=== PATIENT | female | born 1950 | race Caucasian/White ===

== ENCOUNTER 2021-10-01 13:15 | Inpatient (IN) | payer MEDICARE, OTHER, SELFPAY ==
[2021-10-01] VITALS (8 sets, daily range): BP systolic 138–178; BP diastolic 62–82; PULSE 65–78; RESP 14–19; TEMP 36.6–36.7; O2SAT 91–98; BMI 43.0
--- NOTE | 2021-10-01 13:32 | XR_ITS ---
WS: [id number] Portable AP upright chest, 10/01/2021 Clinical Data: cp Comparison: None. Findings: No nodules, masses or effusions are seen. The heart is normal. The pulmonary vascularity is not increased. No pneumonia or pneumothorax is seen. The aortic arch shows calcification. XR/XR chest 1V portable [id number] Impression: Atherosclerosis.
--- NOTE | 2021-10-01 13:35 | ECG_ITS ---
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 Measurements Intervals [place] Rate: 64 P: 70 [place]: 164 QRS: 80 QRSD: 82 T: 8 QT: 391 QTc: 405 Interpretive Statements SINUS RHYTHM POSSIBLE LEFT ATRIAL ENLARGEMENT [-0.1mV P-WAVE IN V1/V2] No previous ECG available for comparison Electronically Signed On 10-02-2021 20:34:14 COMPUTER NUMERIC CONTROL SETTER by Danielle Anders M.D. [email or web address] hospitalLBE [email or web address]/[id number] f
--- NOTE | 2021-10-01 13:35 | W.ED.CHESTPA ---
HPI - Chest Pain General: Chief Complaint: Chest Pain Stated Complaint: chest pain Time Seen by Provider: 10/01/21 13:21 History of Present Illness: HPI narrative: 71-year-old female history of hypertension diabetes and hyperlipidemia presents with chest pain. States that she has had intermittent episodes for the past 4 days but today became constant and it was pressure-like. No radiation. Does report some associated shortness of breath. Denies lower extremity pain or swelling. Denies nausea vomiting. Denies fever cough or chills. Review of Systems Narrative: - CONSTITUTIONAL: Denies weight loss, fever and chills. - HEENT: Denies changes in vision and hearing. - RESPIRATORY: As above - CV: As above - GI: Denies abdominal pain, nausea, vomiting and diarrhea. - : Denies dysuria and urinary frequency. - MSK: Denies myalgia and joint pain. - SKIN: Denies rash and pruritus. - NEUROLOGICAL: Denies headache, weakness, numbness and syncope. - PSYCHIATRIC: Denies suicidal ideation Physical Exam Narrative: EXAM NARRATIVE: - GENERAL: Alert and oriented x 3. No acute distress. Well-nourished. - EYES: EOMI. Anicteric. - HENT: Atraumatic, no C-spine tenderness. Moist mucous membranes. No scleral icterus. No cervical lymphadenopathy. - LUNGS: Clear to auscultation bilaterally. No accessory muscle use. Equal lung sounds bilaterally. No respiratory distress. - CARDIOVASCULAR: Regular rate and rhythm. No murmur. No JVD. - ABDOMEN: Soft, non-tender and non-distended. Negative CVA tenderness bilaterally, no rebound or guarding, negative Gates sign. No palpable masses. - EXTREMITIES: No edema. Non-tender. - SKIN: No rashes or lesions. Warm. - NEUROLOGIC: No meningismus or focal neurological deficits. CN II-XII grossly intact. - PSYCHIATRIC: Cooperative. Appropriate mood and affect. Course Vital Signs: Vital signs: Vital Signs Pulse Rate 67 10/01/21 13:29 Respiratory Rate 14 10/01/21 13:29 Blood Pressure 166/79 10/01/21 13:29 Pulse Oximetry 98 10/01/21 13:29 MDM - Chest Pain MDM Narrative: Medical decision making narrative: 71-year-old presents with chest pain. Physical exam remarkable. She is hemodynamic stable afebrile nontoxic-appearing. However initial troponin is elevated. EKG does not show any signs of STEMI or other acute abnormality. Second troponin is uptrending. She already took aspirin earlier today. She was started on Lovenox. Discussed with cardiology and they will consult. Remainder of lab work unremarkable except for mildly elevated BNP and D-dimer. However age-adjusted D-dimer is negative and she does not have any shortness of breath hypoxia or tachycardia. This time believe probability of PE is significantly lower. X-ray does not reveal pneumothorax or consolidation. Remainder of lab work and imaging reviewed. Discussed with hospitalist and they agreed patient would benefit from admission. Patient admitted in stable condition. Further evaluation management per hospitalist team. Lab Data: Labs: Lab Results 10/01/21 10/01/21 10/01/21 13:55 13:55 13:55 WBC Cancelled Corrected WBC Cancelled RBC Cancelled Hgb Cancelled Hct Cancelled MCV Cancelled MCH Cancelled MCHC Cancelled RDW Cancelled Plt Count Cancelled MPV Cancelled Gran % Cancelled Neut % (Auto) Cancelled Lymph % (Auto) Cancelled [place] % (Auto) Cancelled Eos % (Auto) Cancelled Baso % (Auto) Cancelled Neut # (Auto) Cancelled Lymph # (Auto) Cancelled [place] # (Auto) Cancelled Eos # (Auto) Cancelled Baso # (Auto) Cancelled Absolute Gran (aut o) Cancelled Nucleated RBC % (a uto) Cancelled Nucleated RBCs # Cancelled PT 13.10 SECONDS SEC ONDS (12.1-14.9) INR 0.96 (0.8-1.2) APTT 23.6 SECONDS L SE CONDS (23.9-36.7) D-Dimer 0.71 ug/mIFEU H u g/mIFEU (0-0.59) Sodium 139 mmol/L mmol/L (136-145) Potassium 4.5 mmol/L mmol/L (3.5-5.1) Chloride 103 mmol/L mmol/L (98-107) Carbon Dioxide 26 mmol/L mmol/L (22-29) Anion Gap 14.5 (5-19) BUN 20 mg/dL mg/dL (8-23) Creatinine 0.9 mg/dL mg/dL (0.5-0.9) GFR Calculation Not Reportable Glucose 158 mg/dL H mg/dL (65-115) Calculated Osmolal ity 294 mOsm/kg mOsm/ kg (285-295) Calcium 8.6 mg/dL mg/dL (8.5-10.5) Total Bilirubin 0.2 mg/dL mg/dL (0.15-1.2) AST 18 U/L U/L (0-32) ALT 12 U/L U/L (0-33) Alkaline Phosphata se 99 IU/L IU/L (35-105) Troponin T Baselin e Troponin T 120 Min [place] Troponin T NT-Pro-B Natriuret Pep 800 pg/mL H pg/mL (0-125) Total Protein 6.2 g/dL L g/dL (6.6-8.7) Albumin 3.8 g/dL g/dL (3.5-5.2) Globulin 2.4 g/dL g/dL (1.3-4.6) Lipase 25 U/L U/L (13-60) 10/01/21 10/01/21 10/01/21 13:55 14:50 15:48 WBC 9.4 10^3/uL 10^3/ uL (4.0-10.0) Corrected WBC RBC 4.59 10^6/uL 10^6 /uL (4.1-5.3) Hgb 13.5 g/dL g/dL (11.5-15.3) Hct 43.7 % % (37.0-47.0) MCV 95.2 fl fl (81-99) MCH 29.4 pg pg (28.0-34.0) MCHC 30.9 g/dL g/dL (30.0-36.0) RDW 13.8 % % (12.1-15.1) Plt Count 223 10^3/cmm 10^3 /cmm (130-400) MPV 11.0 fL H fL (7.4-10.4) Gran % Neut % (Auto) 75.7 % % Lymph % (Auto) 14.4 % % [place] % (Auto) 7.3 % % Eos % (Auto) 1.5 % % Baso % (Auto) 0.5 % % Neut # (Auto) 7.11 10^3/uL 10^3 /uL (1.8-7.7) Lymph # (Auto) 1.4 10^3/uL 10^3/ uL (0.8-4.8) [place] # (Auto) 0.7 10^3/uL 10^3/ uL (0.2-0.9) Eos # (Auto) 0.1 10^3/uL 10^3/ uL (0.0-0.8) Baso # (Auto) 0.1 10^3/uL 10^3/ uL (0.0-0.1) Absolute Gran (aut o) Nucleated RBC % (a uto) 0 % % Nucleated RBCs # 0.0 /100WBC /100W BC PT INR APTT D-Dimer Sodium Potassium Chloride Carbon Dioxide Anion Gap BUN Creatinine GFR Calculation Glucose Calculated Osmolal ity Calcium Total Bilirubin AST ALT Alkaline Phosphata se Troponin T Baselin e 56 ng/L H ng/L (0-10) Troponin T 120 Min [place] 86.89 ng/L H ng/L (0-10) Delta Troponin T 30.89 ABS# H* ABS # (0-10) NT-Pro-B Natriuret Pep Total Protein Albumin Globulin Lipase EKG Data^: EKG 1: Other EKG comments: Sinus rhythm rate 64, no sign of acute ischemia or other acute abnormality. Discharge Plan Discharge Prescriptions: No Action atorvastatin 20 mg tablet 20 mg PO BEDTIME RF: 0 aspirin 325 mg Tablet 650 mg PO ONCE RF: 0 metoprolol succinate 100 mg tablet extended release 24 hr 100 mg PO QAM RF: 0 Vitamin B-12 1,000 mcg Tablet 1,000 mcg PO QAM RF: 0 fosinopril 20 mg tablet 20 mg PO BID RF: 0 Calcium + D 600 mg(1,500mg) -200 unit Tablet 1 tab PO QAM RF: 0 allopurinol 100 mg tablet 100 mg PO QAM RF: 0 lorazepam 0.5 mg tablet 0.5 mg PO TID PRN (Reason: Anxiety) RF: 0 Vitamin C 500 mg Tablet 500 mg PO QAM RF: 0 omeprazole 20 mg capsule,delayed release(DR/EC) 20 mg PO QAM RF: 0 hydrochlorothiazide 25 mg tablet 25 mg PO EVERY OTHER DAY RF: 0 Ventolin HFA 90 mcg/actuation Hfa Aerosol Inhaler 2 puff INHALATION Q4H PRN (Reason: Shortness Of Breath) RF: 0 Vitamin D3 50 mcg (2,000 unit) Tablet 50 mcg PO QAM RF: 0 Victoza 3-Jeremy 0.6 mg/0.1 mL (18 mg/3 mL) pen injector 1.8 mg SUBCUT BEDTIME RF: 0 Invokana 100 mg tablet 100 mg PO QAM RF: 0 PreserVision AREDS-2 250-90-40-1 mg Capsule 1 cap PO QAM RF: 0 turmeric 400 mg Capsule 400 mg PO QAM RF: 0 Coding Level of Care Code ED Precision Thread Grinder Operator for Phyllisg Greg
[2021-10-01 14:32] LABS: Troponin(5th) Baseline 56 ng/L (0-10)
[2021-10-01 14:42] LABS: Alanine Aminotransferase 12 U/L (0-33); Albumin Level 3.8 g/dL (3.5-5.2); Alkaline Phosphatase 99 IU/L (35-105); Blood Urea Nitrogen 20 mg/dL (8-23); Calcium 8.6 mg/dL (8.5-10.5); Carbon Dioxide 26 mmol/L (22-29); Chloride 103 mmol/L (98-107); Globulin 2.4 g/dL (1.3-4.6); Glucose 158 mg/dL (65-115); INR 0.96 (0.8-1.2); Lipase 25 U/L (13-60); NT Pro B Type Natriuretic Pept 800 pg/mL (0-125); Osmolality Calculated 294 mOsm/kg (285-295); Partial Thromboplastin Time 23.6 SECONDS (23.9-36.7); Sodium 139 mmol/L (136-145); Total Bilirubin 0.2 mg/dL (0.15-1.2); Total Protein 6.2 g/dL (6.6-8.7)
[2021-10-01 14:47] LABS: Anion Gap 14.5 (5-19); Aspartate Amino Transferase 18 U/L (0-32); D Dimer 0.71 ug/mIFEU (0-0.59); Potassium 4.5 mmol/L (3.5-5.1)
[2021-10-01 14:55] LABS: Basophils # 0.1 10^3/uL (0.0-0.1); Basophils % 0.5 %; Eosinophils # 0.1 10^3/uL (0.0-0.8); Eosinophils % 1.5 %; Hematocrit 43.7 % (37.0-47.0); Hemoglobin 13.5 g/dL (11.5-15.3); Lymphocytes # 1.4 10^3/uL (0.8-4.8); Lymphocytes % 14.4 %; Mean Corpuscular HGB Conc 30.9 g/dL (30.0-36.0); Mean Corpuscular Hemoglobin 29.4 pg (28.0-34.0); Mean Corpuscular Volume 95.2 fl (81-99); Monocytes # 0.7 10^3/uL (0.2-0.9); Monocytes % 7.3 %; Neutrophils # 7.11 10^3/uL (1.8-7.7); Neutrophils % 75.7 %; Nucleated Red Blood Cells % 0 %; Platelet Count 223 10^3/cmm (130-400); Red Blood Count 4.59 10^6/uL (4.1-5.3); Red Cell Distribution Width 13.8 % (12.1-15.1); White Blood Count 9.4 10^3/uL (4.0-10.0)
--- NOTE | 2021-10-01 15:35 | ECG_ITS ---
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 Measurements Intervals [place] Rate: 62 P: 69 [place]: 170 QRS: 77 QRSD: 86 T: 45 QT: 398 QTc: 404 Interpretive Statements SINUS RHYTHM POSSIBLE LEFT ATRIAL ENLARGEMENT [-0.1mV P-WAVE IN V1/V2] Compared to ECG 10/01/2021 14:08:02 No significant changes Electronically Signed On 10-02-2021 22:00:30 HOSE TURNER by Danielle Anders M.D. [email or web address] [email or web address], [email or web address].[email or web address]/[id number] f
[2021-10-01 16:20] LABS: Troponin 5 2HR 86.89 ng/L (0-10)
[2021-10-01 16:21] LABS: Troponin 5 2HR Delta 30.89 ABS# (0-10)
--- NOTE | 2021-10-01 19:28 | PM.CONSULT ---
Providers/Reason For Consult Consulting Physician/Specialty*: Dr. Anders, cardiology Reason for Consult*: NSTEMI Requesting Physician: Dr. Subramanian Attending Physician: Dr. Subramanian History of Present Illness History of Present Illness Camelia Garza is a 71 year old female who presented with chest pain on and off for last few days with worse pain today described as pressure 7-8/10. She took ASA x2 and anxiety medication and then called 911. She recieved NTG SL and came to ER for further evaluation. Troponin T baseline was 56 that increased to 87. She is currently CP free. EKG on arrival showed sinus rhythm with possible left atrial enlargement and nonspecific T wave inversion in lead III. She is CP free at the time of symptoms. Review of Systems Const: Denies: fever(s), chills, change in weight, fatigue or malaise Eyes: Denies: change in vision ENMT: Denies: bleeding gums Card: Reports: chest pain; Denies: edema Resp: Denies: dyspnea GI: Denies: nausea, vomiting, hematemesis, heartburn, diarrhea, constipation, hematochezia or melena : Denies: difficulty voiding, oliguria or hematuria Musc: Denies: back pain or extremity swelling Skin/Breast: Denies: rash or erythema Psych: Denies: anxiety, depression or irritability Endo: Denies: tired all the time Grant/Lymph: Denies: easy bruising, easy bleeding, petechiae or purpura Meds/Allergies Home Medications and Allergies Home Medications Medication Instructions Recorded Confirmed Last Taken Type albuterol sulfate [Ventolin HFA] 2 puff INHALATION Q4H PRN 10/01/21 10/01/21 Unknown History allopurinol 100 mg PO QAM 10/01/21 10/01/21 10/01/21 History ascorbic acid (vitamin C) [Vitamin 500 mg PO QAM 10/01/21 10/01/21 10/01/21 History C] aspirin 650 mg PO ONCE 10/01/21 10/01/21 10/01/21 History atorvastatin 20 mg PO BEDTIME 10/01/21 10/01/21 09/30/21 History calcium carbonate-vitamin D3 1 tab PO QAM 10/01/21 10/01/21 10/01/21 History [Calcium + D] canagliflozin [Invokana] 100 mg PO QAM 10/01/21 10/01/21 10/01/21 History cholecalciferol (vitamin D3) 50 mcg PO QAM 10/01/21 10/01/21 10/01/21 History [Vitamin D3] cyanocobalamin (vitamin B-12) 1,000 mcg PO QAM 10/01/21 10/01/21 10/01/21 History [Vitamin B-12] fosinopril 20 mg PO BID 10/01/21 10/01/21 10/01/21 09:00 History hydrochlorothiazide 25 mg PO EVERY OTHER DAY 10/01/21 10/01/21 10/01/21 History liraglutide [Victoza 3-Jeremy] 1.8 mg SUBCUT BEDTIME 10/01/21 10/01/21 09/30/21 History lorazepam 0.5 mg PO TID PRN 10/01/21 10/01/21 10/01/21 History metoprolol succinate 100 mg PO QAM 10/01/21 10/01/21 10/01/21 09:00 History omeprazole 20 mg PO QAM 10/01/21 10/01/21 10/01/21 09:00 History turmeric 400 mg PO QAM 10/01/21 10/01/21 10/01/21 History vit C,W-Mt-zmqox-lutein-zeaxan 1 cap PO QAM 10/01/21 10/01/21 10/01/21 History [PreserVision AREDS-2] Allergies Allergy/AdvReac Type Severity Reaction Status Date / Time glimepiride [From Amaryl] Allergy Unknown Verified 10/01/21 17:03 lisinopril Allergy Unknown Verified 10/01/21 17:03 Sulfa (Sulfonamide Allergy Unknown Verified 10/01/21 17:03 Antibiotics) insulin prior to surgery Allergy pt states Uncoded 10/01/21 17:03 she cant have any kind of insulin prior to surgery PFSH Acute PFSH: Medical History Diabetes mellitus Dyslipidemia GERD (gastroesophageal reflux disease) Gout HTN (hypertension) Rectal fistula Surgical History Hx of cholecystectomy Family History Mother CHF (congestive heart failure) Brother CHF (congestive heart failure) Social History Smoking and tobacco status: former smoker Alcohol intake: never Household members: none Marital status: / Current occupational status: retired Vitals/I&O/Wt Last Vital Signs Pulse 78 10/01/21 17:39 Resp 14 10/01/21 13:29 BP 178/69 10/01/21 17:39 Pulse Ox 95 10/01/21 17:39 Weight last 48 hrs Weight 220 lb Physical Exam Narrative: EXAM NARRATIVE: GENERAL: obese woman in no acute distress HEENT:Pupils equal round reactive to light. No pallor or icterus. NECK: No JVD, No carotid bruit. CARDIOVASCULAR SYSTEM: S1-S2 regular. No murmur rubs or gallops. RESPIRATORY SYSTEM: Chest clear to auscultation. No wheezes rhonchi or rubs heard. No use of accessory muscles. ABDOMEN: Soft, nontender and nondistended. Normal bowel sounds present. EXTREMITIES: No cyanosis or clubbing. No edema. MEDICAL ASSOCIATE: Patient is alert oriented ?3. No focal neurological deficits. SKIN: Normal turgor and temperature. No breakdown, rash or nail changes noted. PSYCH: Normal insight and judgment. Data Labs: Other Labs: Baseline troponin T of 56 that at 2 hours increased to 87. NT proBNP of 800 Other Data: Other data: Chest x-ray showed no acute abnormalities. A&P Assessment and plan (1) NSTEMI (non-ST elevated myocardial infarction): continue ACS protocol. -Plan for C in morning. -Case was discussed with Dr. Mayen. -Risks and benefits were discussed with the patients. Possible complications were reviewed with the patient as well. Status: Acute (2) HTN (hypertension): Status: Acute (3) Dyslipidemia: Status: Acute (4) Diabetes mellitus: Status: Acute (5) GERD (gastroesophageal reflux disease): Status: Acute Consult Attestations Time Spent in Patient Care: Greater than 35 minutes (>than 50% of time spent in counselling and/or direct pt care on unit). Coding Level of Care Code Acute Engraver Hand Hard Metals for g Fwd Diagnoses NSTEMI (non-ST elevated myocardial infarction) I21.4 HTN (hypertension) I10 Dyslipidemia E78.5 Diabetes mellitus E11.9 GERD (gastroesophageal reflux disease) K21.9
--- NOTE | 2021-10-01 19:31 | P.HP_ITS ---
Providers/Chief Complaint Chief Complaint: chest pain History of Present Illness 71-year-old lady with history of diabetes, HTN, morbid obesity, former smoker, quit 25 years ago, gout, anxiety, since about 10 years he has been expensing some on and off brief episodes of chest discomfort. Today he experienced an episode which lasted at least 30 minutes for which he initially took anxiety medication without relief, then take an aspirin, and received additional medications and EMS, and only then started feeling relief. She states she otherwise has been at baseline state of health. In ER EKG without signs of ischemia, but with troponin elevation from 56-86.892 hours. Currently she is chest pain-free. Review of Systems Const: Denies: fever(s), chills, body aches or malaise Eyes: Denies: change in vision or eye redness ENMT: Denies: throat pain, oral sores or ear or mastoid pain Card: Reports: chest pain; Denies: edema, pre-syncope or dyspnea on exertion Resp: Denies: dyspnea, productive cough, change in phlegm color or hemoptysis GI: Denies: abdominal pain, nausea, vomiting, diarrhea, constipation, hematochezia or melena : Denies: flank pain, urinary frequency or hematuria Musc: Denies: back pain, joint swelling or joint redness Skin/Breast: Denies: rash, sores or new lesions Neuro: Denies: headache(s), numbness in extremities, weakness in extremities, dizziness, confusion or seizure-like activity Endo: Denies: polyuria or polydipsia Grant/Lymph: Denies: easy bleeding or purpura All/Imm: Denies: urticaria, throat swelling or tongue swelling Medications/Allergies Home Medications Medication Instructions Recorded Confirmed Last Taken Type albuterol sulfate [Ventolin HFA] 2 puff INHALATION Q4H PRN 10/01/21 10/01/21 Unknown History allopurinol 100 mg PO QAM 10/01/21 10/01/21 10/01/21 History ascorbic acid (vitamin C) [Vitamin 500 mg PO QAM 10/01/21 10/01/21 10/01/21 History C] aspirin 650 mg PO ONCE 10/01/21 10/01/21 10/01/21 History atorvastatin 20 mg PO BEDTIME 10/01/21 10/01/21 09/30/21 History calcium carbonate-vitamin D3 1 tab PO QAM 10/01/21 10/01/21 10/01/21 History [Calcium + D] canagliflozin [Invokana] 100 mg PO QAM 10/01/21 10/01/21 10/01/21 History cholecalciferol (vitamin D3) 50 mcg PO QAM 10/01/21 10/01/21 10/01/21 History [Vitamin D3] cyanocobalamin (vitamin B-12) 1,000 mcg PO QAM 10/01/21 10/01/21 10/01/21 History [Vitamin B-12] fosinopril 20 mg PO BID 10/01/21 10/01/21 10/01/21 09:00 History hydrochlorothiazide 25 mg PO EVERY OTHER DAY 10/01/21 10/01/21 10/01/21 History liraglutide [Victoza 3-Jeremy] 1.8 mg SUBCUT BEDTIME 10/01/21 10/01/21 09/30/21 History lorazepam 0.5 mg PO TID PRN 10/01/21 10/01/21 10/01/21 History metoprolol succinate 100 mg PO QAM 10/01/21 10/01/21 10/01/21 09:00 History omeprazole 20 mg PO QAM 10/01/21 10/01/21 10/01/21 09:00 History turmeric 400 mg PO QAM 10/01/21 10/01/21 10/01/21 History vit C,J-Xa-qthyr-lutein-zeaxan 1 cap PO QAM 10/01/21 10/01/21 10/01/21 History [PreserVision AREDS-2] Allergies Allergy/AdvReac Type Severity Reaction Status Date / Time glimepiride [From Amaryl] Allergy Unknown Verified 10/01/21 17:03 lisinopril Allergy Unknown Verified 10/01/21 17:03 Sulfa (Sulfonamide Allergy Unknown Verified 10/01/21 17:03 Antibiotics) insulin prior to surgery Allergy pt states Uncoded 10/01/21 17:03 she cant have any kind of insulin prior to surgery PFSH Acute PFSH: Medical History (Updated 10/01/21 @ 19:34 by Ravi Subramanian MD) Diabetes mellitus Dyslipidemia GERD (gastroesophageal reflux disease) Gout HTN (hypertension) Rectal fistula Surgical History Hx of cholecystectomy Family History Mother CHF (congestive heart failure) Brother CHF (congestive heart failure) Social History Smoking and tobacco status: former smoker Alcohol intake: never Substance/Drug Use: never Household members: none Marital status: / Current occupational status: retired Vitals/I&O/Wt Last Vital Signs Pulse 78 10/01/21 17:39 Resp 14 10/01/21 13:29 BP 178/69 10/01/21 17:39 Pulse Ox 95 10/01/21 17:39 Weight last 48 hrs Weight 99.79 kg Physical Exam Const: COMMON NORMALS: no acute distress and patient oriented x3 NUTRITIONAL APPEARANCE: obese morbidly obese HENMT: COMMON NORMALS: oropharynx normal Neck/C-Spine: COMMON NORMALS: no JVD Resp: COMMON NORMALS: normal respiratory effort and clear to auscultation bilaterally AUSCULTATION: clear to auscultation bilaterally Cardio: COMMON NORMALS: no JVD, regular rhythm, S1 normal heart sound present, S2 normal heart sound present and No murmurs present (Cardio) RHYTHM: regular rhythm HEART SOUNDS: S1 normal heart sound present and S2 normal heart sound present GI: COMMON NORMALS: Normal to inspection, nondistended, normoactive bowel sounds present, Soft to palpation and non-tender PALPATION: Yes Soft to palpation Extremity: COMMON NORMALS: no joint enlargement and no pedal edema Neuro: COMMON NORMALS: patient oriented x3 and moves all extremities Skin: COMMON NORMALS: no rashes or lesions noted GENERAL SKIN EXAM: no rashes or lesions noted Data : 10/01/21 14:50 10/01/21 13:55 A&P Assessment and plan (1) NSTEMI (non-ST elevated myocardial infarction): Recurrent episodes of chest pain since clear, today with a prolonged episode at least 30 minutes, with troponin elevation. Risk factors of CAD including DM2, HTN, morbid obesity, history of heart problems in the family. Former smoker but quit 23 years ago. Aspirin, continue Lovenox, beta-rani, statin. NTG as needed. Monitor telemet ry. TTE. Cardiology consultation. Status: Acute Additional A&P Information Mild abnormality D-dimer: 0.71, normal corrected for age. Denies shortness of breath, cough, hemoptysis, unilateral leg swelling, low risk of PE. DM2 HTN Morbid obesity Attestations Medical Necessity Statement*: Admission of over 2 midnights is anticipated for assessment management of NSTEMI. Coding Level of Care Code Acute Chemical Engineering Intern for Venkatesh Garza Diagnoses NSTEMI (non-ST elevated myocardial infarction) I21.4
--- NOTE | 2021-10-01 19:35 | ECG_ITS ---
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 Measurements Intervals [place] Rate: 69 P: 73 [place]: 179 QRS: 74 QRSD: 75 T: 18 QT: 382 QTc: 410 Interpretive Statements SINUS RHYTHM NONSPECIFIC T-WAVE ABNORMALITY Compared to ECG 10/01/2021 15:22:23 T-wave abnormality now present Electronically Signed On 10-02-2021 21:58:59 RIVETING MACHINE OPERATOR AUTOMATIC by Danielle Anders M.D. [id number]
[2021-10-01] MEDS: enoxaparin 100 mg/mL Syringe SUBCUT (19:59)
[2021-10-01 20:38] LABS: Troponin 5 6HR 148.3 ng/L (0-10)
[2021-10-01 20:45] LABS: Troponin 5 6HR Delta 92.3 ng/L (0-12)
[2021-10-01 21:18] LABS: Glucose Point of Care 115 mg/dL (70-110)
[2021-10-01] MEDS: atorvastatin 40 mg Tablet PO (22:10)
[2021-10-02] VITALS (32 sets, daily range): BP systolic 109–179; BP diastolic 50–99; PULSE 63–90; RESP 16–33; TEMP 36.5–36.9; O2SAT 92–100
[2021-10-02 02:02] LABS: Adenovirus Not Detected (NOT DETECT); Chlamydia Pneumoniae Not Detected (NOT DETECT); Coronavirus 229E,HKU1,NL63,OC4 Not Detected (NOT DETECT); Human Metapneumovirus Not Detected (NOT DETECT); Human Rhinovirus/Enterovirus Not Detected (NOT DETECT); Influenza A Not Detected (NOT DETECT); Influenza A H1 Not Detected (NOT DETECT); Influenza A H1-2009 Not Detected (NOT DETECT); Influenza A H3 Not Detected (NOT DETECT); Influenza B Not Detected (NOT DETECT); Mycoplasma Pneumoniae Not Detected (NOT DETECT); Parainfluenza Virus Type 1 Not Detected (NOT DETECT); Parainfluenza Virus Type 2 Not Detected (NOT DETECT); Parainfluenza Virus Type 3 Not Detected (NOT DETECT); Parainfluenza Virus Type 4 Not Detected (NOT DETECT); Respiratory Syncytial Virus A Not Detected (NOT DETECT); Respiratory Syncytial Virus B Not Detected (NOT DETECT); SARS-COV-2 Not Detected (NOT DETECT)
[2021-10-02] MEDS: allopurinol 100 mg Tablet PO (05:45)
[2021-10-02] MEDS: metoprolol succinate ER (24 HR) 100 mg Tablet PO (05:45)
[2021-10-02] MEDS: ascorbic acid 500 mg Tablet PO (05:45)
[2021-10-02] MEDS: pantoprazole DR 40 mg Tablet PO (05:45)
[2021-10-02] MEDS: sodium chloride 0.9% 1,000 ML 50 ML IV (05:46)
[2021-10-02 06:38] LABS: Basophils # 0.1 10^3/uL (0.0-0.1); Basophils % 0.6 %; Eosinophils # 0.3 10^3/uL (0.0-0.8); Eosinophils % 3.1 %; Lymphocytes # 2.6 10^3/uL (0.8-4.8); Lymphocytes % 29.7 %; Mean Corpuscular Hemoglobin 29.2 pg (28.0-34.0); Mean Corpuscular Volume 94.4 fl (81-99); Mean Platelet Volume 12.1 fL (7.4-10.4); Monocytes # 0.8 10^3/uL (0.2-0.9); Monocytes % 9.5 %; Neutrophils # 4.96 10^3/uL (1.8-7.7); Neutrophils % 56.5 %; Nucleated Red Blood Cells % 0 %; Platelet Count 218 10^3/cmm (130-400); Red Blood Count 4.45 10^6/uL (4.1-5.3); Red Cell Distribution Width 13.7 % (12.1-15.1); White Blood Count 8.8 10^3/uL (4.0-10.0)
[2021-10-02 06:45] LABS: Glucose Point of Care 104 mg/dL (70-110)
[2021-10-02 06:51] LABS: Blood Urea Nitrogen 20 mg/dL (8-23); Calcium 9.8 mg/dL (8.5-10.5); Carbon Dioxide 25 mmol/L (22-29); Chloride 104 mmol/L (98-107); Glucose 108 mg/dL (65-115); Osmolality Calculated 295 mOsm/kg (285-295); Sodium 141 mmol/L (136-145)
--- NOTE | 2021-10-02 07:02 | XACV_ITS ---
Exam Room: [facility] Ht: 152 cm Wt: 100 kg BSA: 2.12 m2 Gender: Female : 1950 Any Known Allergies: Other Exam Priority: Routine Procedure(s): Procedure Description: Diagnostic procedure Procedure Description: Left Heart Catheterization Procedure Description: Coronary Angiography Diagnostic Cath Status: Urgent Diagnostic Findings * Left Anterior Descending has no disease. * Left Main: minimal 30% stenosis, DARRIN: 3 flow. * Proximal Right Coronary Artery: minimal 30% stenosis, DARRIN: 3 flow. * Mid Right Coronary Artery: moderate 50% stenosis, DARRIN: 3 flow. * Distal Right Coronary Artery: severe 90% stenosis, DARRIN: 3 flow. * Distal Right Coronary Artery: moderate 50% stenosis, DARRIN: 3 flow. * Distal Circumflex: mild 40% stenosis, DARRIN: 3 flow. * Coronary angiography shows right dominance. Conclusions 1. There is severe coronary artery disease with three vessel disease. Recommendations * While patient was on the table we received * STEMI alert, patient was taken off of the table with sheath in place with the intention to bring him back after the we will deal with patient in the ER.. Diagnostic RX Recommendation: PCI w/o planned CABG Pressures Phase:Rest AO : 163 / 67 ( 103 ) @ 10:14:00 AM 138 / 70 ( 99 ) @ 10:15:00 AM 200 / 78 ( 123 ) @ 10:34:00 AM 170 / 60 ( 104 ) @ 10:43:00 AM 159 / 59 ( 99 ) @ 10:43:00 AM 129 / 61 ( 91 ) @ 10:45:00 AM LV : 174 / -4 / 18 @ 10:42:00 AM 171 / -4 / 18 @ 10:43:00 AM Valves Phase:DefaultPhase AV : 1.0 @ 1:06:54 PM AV Mean Gradient: 0.0 @ 1:06:54 PM Clinical Evaluation EBL: 5mL-10mL Procedural Details Procedure Consent Obtained. Dr. Anders scrubbing in with Dr. Angella Tam, paintings conservator. Pre-Procedure Time Out. Identified patient by full name and date of as verbalized by the patient/guarantor. Does the consent match the physician's order: Yes. Accurate & Complete Informed Consent: Yes. Inpatient/Outpatient History & Physical on Chart: Yes. If H&P is completed, is and addenduem needed: Yes; If yes, is the addendum complete: Yes. Visualize and Verify Site with Patient/Guarantor: N/A. Relevant Radiology Images available: Yes. The risks, benefits, and alternatives of sedation and/or procedure were discussed by physician. The patient agrees to continue. Procedure started. [facility] Clinical Fraility Score: 3: Managing Well. Entry Analyst Indications: New Onset Angina. Chest Pain Symptom Assessment: Typical Angina Symptoms. Cardiovascular Instability: No. Correct patient, site and procedure confirmed by cath team. PERRLA. Strong, equal hand geologic technician bilaterally. Lungs clear x 5 lobes. IV Site on Arrival: 20 gauge in the left forearm. IV Fluids: 0.9% NaCl at KVO. 300 mL infused prior to solar lab technician. Pre Procedural Pulses: bilateral radial was 3+. Oxygen started at 2liters/min via nasal canula. right groin was prepped with chloroprep then draped in the usual sterile fashion. right radial was prepped with chloroprep then draped in the usual sterile fashion. Physician notified. Patient's family unavailable. The patient stated that she contacted her family this morning and that there was no reason for Dr. Mayen to call post procedure, that she would call them later. Equipment: 6F - Radial. Cardiac Cath Pack. ACIST Manifold Kit Model BT 2000. Heparinized Saline (2 units/mL), 1000 mL bag. Physician arrived. Baseline sample Acquired. HR: 71 BPM. Physician scrubbed in. Immediate Pre-Procedure Time Out. Correct Patient: Yes; Correct Procedure: Yes; Correct Site: Yes; Correct Patient Position: Yes; Correct Supplies: Yes; Dried Flammable Prep:Yes Blood Products Available: N/A;. Lidocaine 1% infiltrated to the right radial. Arterial access obtained. A 5 prydeinig TIG catheter in over wire. Radial access aborted due to tortuosity. A TR Band was successful obtaining hemostatsis at the Right Radial artery insertion site. Lidocaine 1% infiltrated to the right groin. Arterial access obtained with micropuncture set. A Right femoral angiogram was performed via hand injection. A 5 prydeinig JL4 catheter in over wire. Multiple views taken of left coronary artery. Catheter out. A 5 prydeinig JR4 catheter in over wire. EDP Sample taken: LV 174/-5,18; HR: 74 BPM; SpO2: 98%. Pullback taken: LV 171/-5,18; AO 170/60(104); Mean: 0mmHg, Peak to Peak: 1mmHg, SEP: 16sec/min; HR: 72 BPM; SpO2: 99%. Multiple views taken of right coronary artery. Catheter out. Dr. Mayen scrubbed out to assess an STEMI alert in the ER. Will abort PCI at this time to bring an ER NSTEMI over. Vital chart was stopped. Dr. Anders scrubbed out. Sheath(s) sutured into position with 2-0 silk and sterile 4x4's and Op-site applied over the site. No oozing or signs and symptoms of hematoma noted. Post Procedure: Pulses reassessed and unchanged. PERRLA. Strong, equal hand geologic technician bilaterally. No VTE prophylaxis required. Arterial sheath flushed and connected to tranducer and pressure bag with heparinized saline. A Suture was successful obtaining hemostatsis at the Right Femoral artery insertion site. Medication's Wasted: Nitro = 49.8 mg. Medication's Wasted: Heparin = 4000 units. Total IV fluids: 92 mL. Post-op diagnosis: Obstructive CAD of the RCA. Plan to bring back later today for PCI. Complications: none. Estimated blood loss: 5mL-10mL. Responsiveness - Normal response to verbal stimuli; alert and oriented, PERRLA. Airway - Unaffected, no intervention required; spontaneous ventilation. Circulation: W/N/L, pulses unchanged. Nausea/Vomiting: No. Procedure completed. Patient transferred by bed to 1st floor. Access Site Site: Right Radial artery Sheath Size: 6 Fr Hemostasis Method: TR Band Hemostasis Success: Successful Site: Right Femoral artery Sheath Size: 6 Fr Hemostasis Method: Suture Hemostasis Success: Successful Procedure Medications Start: 11:49 AM Stop: 11:49 AM Medication: Versed Amount: 1 mg Route: I.V. Start: 11:49 AM Stop: 11:49 AM Medication: Fentanyl Amount: 25 mcg Route: I.V. Start: 11:50 AM Stop: 11:50 AM Medication: Benadryl Amount: 50 mg Route: I.V. Start: 12:07 PM Stop: 12:07 PM Medication: Versed Amount: 1 mg Route: I.V. Start: 12:08 PM Stop: 12:08 PM Medication: Nitrogylcerin Amount: 200 mcg Route: I.A. Start: 12:38 PM Stop: 12:38 PM Medication: Fentanyl Amount: 25 mcg Route: I.V. Start: 12:39 PM Stop: 12:39 PM Medication: Hydralazine Amount: 10 mg Route: I.V. Start: 12:44 PM Stop: 12:44 PM Medication: Hydralazine Amount: 10 mg Route: I.V. Start: 1:03 PM Stop: 1:03 PM Medication: Plavix Amount: 600 mg Route: P.O. I, the attending physician, have reviewed and verified all procedure medications. Yes, all medications given per verbal order History/Risk Factors Hypertension: Yes Dyslipidemia: Yes Peripheral Arterial Disease (PAD): No Myocardial Infarction (SD): No Obesity: Yes Tobacco Use: Former Prior Interventions PCI: No CABG: No Valve Surgery: No Report Signatures Finalized by Migel Mayen MD on 10/15/2021 06:59 PM
[2021-10-02] MEDS: aspirin 325 mg EC Tablet PO (08:48)
--- NOTE | 2021-10-02 11:42 | W.PM.OPSUD ---
Surgery/Procedure H&P Update DATE OF PROCEDURE: October 02, 2021 DATE H&P PERFORMED: 10/01/21 H&P UPDATE INFORMATION: I have reviewed H&P completed within last 30 days, I have examined patient prior to procedure and No changes to prior documentation PREOP DIAGNOSIS: Acute coronary syndrome PLANNED PROCEDURE: Operation Date: 10/02/21 11:00 Proposed Procedures p Cardiac Catheterization(Left) - Migel Mayen MD PATIENT REASSESSED PRIOR TO SEDATION, WITH NO CHANGE NOTED: Yes PHYSICAL EXAM: alert, oriented x 3 and clear to auscultation bilaterally AIRWAY EVAL/ANESTHESIA PLAN: ASA II and Risks, benefits & alternatives of sedation and/or procedure discussed ADDITIONAL INFORMATION: Patient has been explained all risk patient understand risk for major minors surgery vascular surgery stroke bypass surgery urgent emergent, she understand risk for transfusion. She would like to proceed with it.
[2021-10-02 11:46] LABS: Glucose Point of Care 128 mg/dL (70-110)
--- NOTE | 2021-10-02 13:00 | PC.NURSE ---
from brick and blocker aid labor Pt is alert, oriented. has right femoral sheath attached to pressure bag. no bleeding or hematoma noted upon inspection and palpation. pedal pulses are palpable +3. call light provided. pt instructed on activity restrictions on her right leg and bedrest. pt teaches back.
--- NOTE | 2021-10-02 13:28 | ECG_ITS ---
[facility] Test Date: 2021-10-02 Pat Name: Camelia Garza Department: Room: 105 Gender: Female Jigmaker: : 1950 Requested By: Danielle Anders Order Number: [id number] Elly MD: Danielle Anders M.D. Measurements Intervals [place] Rate: 92 P: 74 UT: 194 QRS: 81 QRSD: 82 T: -37 QT: 345 QTc: 427 Interpretive Statements SINUS RHYTHM NONSPECIFIC ST & T-WAVE ABNORMALITY INTERPRETATION BASED ON A DEFAULT AGE OF 40 YEARS Compared to ECG 10/01/2021 21:16:29 No significant changes Electronically Signed On 10-02-2021 20:21:50 ELECTRONIC COMPONENT PROCESSOR by Danielle Anders M.D. [email or web address]
[2021-10-02] MEDS: nitroglycerin 0.4 mg sublingual Tablet SUBLINGUAL (13:30)
--- NOTE | 2021-10-02 13:34 | XACV_ITS ---
Exam Room: [facility] Ht: 152 cm Wt: 100 kg BSA: 2.12 m2 Gender: Female : 1950 Any Known Allergies: Other Exam Priority: Routine Procedure(s): Procedure Description: Diagnostic procedure Procedure Description: Aortic Arch Angiography Procedure Description: Peripheral Cath Diagnostic Procedure Procedure Description: Coronary Angiography Procedure Description: Perclose Diagnostic Cath Status: Urgent PCI Status: Urgent Conclusions This is a morbidly obese patient who underwent coronary angiogram through right groin approach due to extreme tortuosity of the subclavian vessel and highly calcified aortic arch few hours ago. She was noted to have significant RCA disease. During process of angiogram ST elevation AL presented to the emergency room. Patient was taken off of the table to deal with emergency . She was brought back for intervention of the right coronary. It was noted that her groin sheath was mcc out and not in the vessel. No hematoma was noted. I injected contrast through the sheath and noted to have extravasation in the pelvis near the bladder. Left groin approach was adopted peripheral angiogram was performed to rule out perforation of the right common femoral. No perforation was noted. Right common femoral sheath was then pulled out. Hemostasis was achieved. At this time we decided that we will bring patient back tomorrow for angiogram and intervention of the RCA. . Recommendations Usual post cath care for right groin. Complete bedrest for the 5 hours. We will bring patient back tomorrow for intervention of the RCA. . Pressures Phase:Rest AO : 146 / 51 ( 84 ) @ 3:29:00 PM 143 / 54 ( 87 ) @ 3:34:00 PM 130 / 47 ( 74 ) @ 3:48:00 PM Hemodynamic Data Phase:Rest AO : 146.0 / 51.0 ( 84.0 ) @ 3:29:00 PM 143.0 / 54.0 ( 87.0 ) @ 3:34:00 PM 130.0 / 47.0 ( 74.0 ) @ 3:48:00 PM Clinical Evaluation EBL: 5mL-10mL Procedural Details Pre-Procedure Time Out. Identified patient by full name and date of as verbalized by the patient/guarantor. Does the consent match the physician's order: Yes. Accurate & Complete Informed Consent: Yes. Inpatient/Outpatient History & Physical on Chart: Yes. Visualize and Verify Site with Patient/Guarantor: N/A. Relevant Radiology Images available: N/A. Pre-op teaching completed and patient verbalized understanding. The risks, benefits, and alternatives of sedation and/or procedure were discussed by physician. The patient agrees to continue. Procedure started. Admit Source: In Patient. Current diagnosis: Chest Pain. PERRLA. Strong, equal hand end polisher bilaterally. Lungs clear x 5 lobes. IV Site on Arrival: 20 gauge in the left anticubital. IV Fluids: 0.9% NaCl at KVO. 500 mL infused prior to slab puller. Oxygen started at 2liters/min via nasal canula. right groin was prepped with chloroprep then draped in the usual sterile fashion. Baseline sample Acquired. HR: 67 BPM. Physician notified. Baseline sample Acquired. HR: 68 BPM. Physician arrived. Physician scrubbed in. Immediate Pre-Procedure Time Out. Correct Patient: Yes; Correct Procedure: Yes; Correct Site: Yes; Correct Patient Position: Yes; Correct Supplies: Yes; Dried Flammable Prep: N/A; Blood Products Available: N/A;. Lidocaine 1% infiltrated to the right groin. 6Fr Femoral sheath exchanged for new 6Fr femoral sheath. Glidewire inserted. Glidewire removed. right radial was prepped with chloroprep then draped in the usual sterile fashion. Lidocaine 1% infiltrated to the right radial. Arterial access obtained. Exchange wire inserted. Exchange wire removed. Glidewire inserted. A 6 panamanian Angled Pig 125cm catheter in over wire. Catheter out. A 5 panamanian Angled Pig 125cm catheter in over wire. Catheter out. A 5 panamanian JR4 125cm catheter in over wire. Glidewire out. Digital subtraction image taken. Glidewire inserted. Wire and catheter removed. Hand injection taken through the femoral sheath. Dr Camilo called to come to cardiac slab puller to review films. A TR Band was successful obtaining hemostatsis at the Right Radial artery insertion site. Lidocaine 1% infiltrated to the left groin. Arterial access obtained with micropuncture set. A 5 panamanian UF catheter in over wire. Wire removed. Aortogram performed in FIGUEROA @ 10 mL/second for a total of 30 mL. Glidewire inserted. Glidewire removed. Hand injection taken through the UF catheter. A Manual Compression was successful obtaining hemostatsis at the Right Femoral artery insertion site. UF catheter to L groin connected to KVO to maintain patency. Aortogram performed in FIGUEROA @ 10 mL/second for a total of 30 mL. Lidocaine 1% infiltrated to the left groin. Catheter out. Perclose partially deployed. 6Fr sheath reinserted into L femoral groin access. 6Fr sheath sutured to pressure bag. A Perclose ([employer]) was unsuccessful obtaining hemostatsis at the Left Femoral artery insertion site. Post Procedure: Pulses reassessed and unchanged. PERRLA. Strong, equal hand end polisher bilaterally. No VTE prophylaxis required. Medication's Wasted: Lidocaine 1% = 17 mL. Medication's Wasted: Heparin = 1000 u. Medication's Wasted: Other Aggrastat 200 mL. Total IV fluids: 145 mL. Complications: none. Estimated blood loss: 5mL-10mL. Responsiveness - Normal response to verbal stimuli; alert and oriented, PERRLA. Airway - Unaffected, no intervention required; spontaneous ventilation. Circulation: W/N/L, pulses unchanged. Nausea/Vomiting: No. Procedure completed. Patient transferred by bed to 1st floor. Vital chart was stopped. Access Site Site: Right Femoral artery Sheath Size: 6 Fr Hemostasis Method: Manual Compression Hemostasis Success: Successful Site: Right Radial artery Sheath Size: 6 Fr Hemostasis Method: TR Band Hemostasis Success: Successful Site: Left Femoral artery Sheath Size: 6 Fr Hemostasis Method: Perclose ([employer]) Hemostasis Success: Unsuccessful Procedure Medications Start: 4:22 PM Stop: 4:22 PM Medication: Versed Amount: 1 mg Route: I.V. Start: 4:22 PM Stop: 4:22 PM Medication: Fentanyl Amount: 50 mcg Route: I.V. Start: 4:23 PM Stop: 4:23 PM Medication: Aggrastat 12.5 mg/250 mL Amount: 50 ml Route: I.V. bolus Start: 4:40 PM Stop: 4:40 PM Medication: Versed Amount: 1 mg Route: I.V. Start: 5:18 PM Stop: 5:18 PM Medication: Versed Amount: 1 mg Route: I.V. Start: 5:36 PM Stop: 5:36 PM Medication: Fentanyl Amount: 50 mcg Route: I.V. I, the attending physician, have reviewed and verified all procedure medications. Yes, all medications given per verbal order History/Risk Factors Hypertension: Yes Dyslipidemia: Yes Peripheral Arterial Disease (PAD): No Myocardial Infarction (AL): No Obesity: Yes Tobacco Use: Former Prior Interventions PCI: No CABG: No Valve Surgery: No Report Signatures Finalized by Migel Mayen MD on 10/15/2021 07:24 PM
[2021-10-02] MEDS: nitroglycerin drip 50 MG/250 ML PREMIX 6 MG IV (13:36)
--- NOTE | 2021-10-02 13:49 | PC.NURSE ---
Spoke with hospitalist regarding patients described pain, physician orders for GI cocktail, if pain still persists, will contact Cardiology.
[2021-10-02] MEDS: lidocaine 2% viscous 15 ML, aluminum-mag hydrox-simethicon 30 ML, sucralfate oral liq 1 GM PO (14:13)
[2021-10-02] MEDS: LORazepam 0.5 mg Tablet PO (14:21)
--- NOTE | 2021-10-02 16:31 | PC.NURSE ---
back to laborer rags
--- NOTE | 2021-10-02 18:14 | P.PN_ITS ---
Subjective Subjective: Interval history: Today she was feeling better. Denies chest pain or pressure. Did not sleep well. No trouble breathing. Vitals/I&O/Wt Last Vital Signs Temp 97.7 F 10/02/21 16:00 Pulse 71 10/02/21 16:00 Resp 18 10/02/21 16:00 BP 112/51 10/02/21 16:00 Pulse Ox 100 10/02/21 16:00 Weight last 48 hrs Weight 99.79 kg Physical Exam Narrative: EXAM NARRATIVE: Up in chair. Const: COMMON NORMALS: no acute distress and patient oriented x3 NUTRITIONAL APPEARANCE: obese morbidly obese HENMT: COMMON NORMALS: oropharynx normal Neck/C-Spine: COMMON NORMALS: no JVD Resp: COMMON NORMALS: normal respiratory effort and clear to auscultation bilaterally AUSCULTATION: clear to auscultation bilaterally Cardio: COMMON NORMALS: no JVD, regular rhythm, S1 normal heart sound present, S2 normal heart sound present and No murmurs present (Cardio) RHYTHM: regular rhythm HEART SOUNDS: S1 normal heart sound present and S2 normal heart sound present GI: COMMON NORMALS: Normal to inspection, nondistended, normoactive bowel sounds present, Soft to palpation and non-tender PALPATION: Yes Soft to palpation Extremity: COMMON NORMALS: no joint enlargement and no pedal edema Neuro: COMMON NORMALS: patient oriented x3 and moves all extremities Skin: COMMON NORMALS: no rashes or lesions noted GENERAL SKIN EXAM: no pat hes or lesions noted Data : 10/02/21 04:53 10/02/21 04:53 A&P Assessment and plan (1) NSTEMI (non-ST elevated myocardial infarction): Coronary angiogram today due to NSTEMI, had to be interrupted and done in stages treatment an emergent case. TTE with EF 58%, grade 1 diastolic dysfunction, thickened mitral valve, trace MVR, trace TVR. Pulmonary artery peak systolic pressure 36 mmHg. No pericardial effusion. Recurrent episodes of chest pain day of admission prolonged episode at least 30 minutes, with troponin elevation with positive delta. Risk factors of CAD including DM2, HTN, morbid obesity, history of heart problems in the family. Former smoker but quit 23 years ago. Aspirin, continue Lovenox, beta-rani, statin. NTG as needed. Monitor telemetry. Status: Acute Additional A&P Information Mild abnormality D-dimer: 0.71, normal corrected for age. Denies shortness of breath, cough, hemoptysis, unilateral leg swelling, low risk of PE. DM2 HTN Morbid obesity Attestations Medical Necessity Statement*: Continue admission for assessment and invasive cardiac evaluation and management of NSTEMI. Coding Level of Care Code Acute Inventory Controller for [facility] Diagnoses NSTEMI (non-ST elevated myocardial infarction) I21.4
--- NOTE | 2021-10-02 18:35 | P.PN_ITS ---
Subjective Subjective: Interval history: Patient was recommended for left heart cath by my cardiology colleague Dr. Anders, she was taken to the Metal Crafts Teacher noted to have mid high-grade right coronary artery significant stenosis. Patient had highly tortuous subclavian vessels therefore engagement of the catheter was not optimal, we adopted a right groin approach, 6 Spanish sheath was inserted in the right common femoral vessel. Angiogram was performed we were about to intervene when I was called for urgent angiogram and the patient highly suspicious for evolving ST elevation [place]. Patient was taken off the table and transferred to CSU with the intention to bring her back after we deal with urgent case. Patient was brought back to the Metal Crafts Teacher, she was noted to have groin sheath sticking out of the body possibly. It appeared to me that she has been pulled out the vessel. There was no hematoma. I tried to inject 2 the right groin sheath it showed some extravasation near the urinary bladder, I decided to rule out perforation of the common femoral vessel and bleeding. Contralateral access was performed as due to the tortuosity of the aorta peripheral angiogram may not be possible through the wrist approach. Peripheral angiogram was performed which did not show any perforation in the iliac femoral or SFA. Right sheath was taken out, pressure was held for 20 minutes. After confirming good hemostasis Patient was transferred back to CSU with intention to defer the intervention for now and perform left heart cath/PCI tomorrow through groin approach. Patient was explained in detail regarding her plan of treatment. She agreed with it. Vitals/I&O/Wt Last Vital Signs Temp 97.7 F 10/02/21 16:00 Pulse 71 10/02/21 16:00 Resp 18 10/02/21 16:00 BP 112/51 10/02/21 16:00 Pulse Ox 100 10/02/21 16:00 Weight last 48 hrs Weight 220 lb Physical Exam Narrative: EXAM NARRATIVE: GENERAL: Patient is alert, awake and oriented x3. Obese NECK: No jugular vein distension. HEENT: No cyanosis. No icterus. No pallor. HEART: Regular S1 and S2. No murmur, rub or gallop. LUNGS: Clear to auscultate bilaterally. ABDOMEN: Soft, nontender and nondistended. Positive bowel sounds. No guarding, rebound or tenderness. Large pannus CENTRAL NERVOUS SYSTEM: Grossly nonfocal. EXTREMITIES: Lower extremities without edema bilaterally. Pulses palpable in the lower extremities, both dorsalis pedis and posterior tibial. Const: COMMON NORMALS: alert Resp: COMMON NORMALS: clear to auscultation bilaterally AUSCULTATION: clear to auscultation bilaterally Neuro: SENSORIUM/ORIENTATION: Yes alert Data : 10/02/21 04:53 10/02/21 04:53 A&P Assessment and plan (1) NSTEMI (non-ST elevated myocardial infarction): Most likely culprit vessel for non-ST elevation is high-grade lesion in the highly calcified right coronary artery. As defined above due to sheath problem we will defer PCI to tomorrow. Continue to treat medically for now. Patient is stable denies any chest pain. Status: Acute (2) HTN (hypertension): Remained stable. Status: Acute (3) Dyslipidemia: Continue statin Status: Acute (4) Diabetes mellitus: As per medicine Status: Acute (5) GERD (gastroesophageal reflux disease): Continue PPI Status: Acute Attestations Medical Necessity Statement*: Patient requires continued hospitalization for evaluation and care. Coding Level of Care Code Acute Benefits Advisor for [facility] Diagnoses NSTEMI (non-ST elevated myocardial infarction) I21.4 HTN (hypertension) I10 Dyslipidemia E78.5 Diabetes mellitus E11.9 GERD (gastroesophageal reflux disease) K21.9
[2021-10-02 20:23] LABS: Glucose Point of Care 89 mg/dL (70-110)
[2021-10-02] MEDS: atorvastatin 40 mg Tablet PO (20:26)
[2021-10-02] MEDS: temazepam 15 mg Capsule PO (20:26)
[2021-10-02] MEDS: acetaminophen 325 mg Tablet 650 MG PO (20:26)
[2021-10-02] MEDS: sodium chloride 0.9% 1,000 ML 100 ML IV (20:28)
--- NOTE | 2021-10-02 20:32 | PC.NURSE ---
Received report from GUILLERMINA Fabian. Patient s/p [facility] with right and left groin access as well as TR band to right wrist. Sheath remains to left groin. Instructed patient on sheath removal, site care and restrictions. Patient verbalized understanding. Initiated sheath removal at 1934. Hemostasis achieved immediately. Maintained pressure for 20min. No s/s of bleeding or hematoma formation observed . Dr Mayen in to see patient. C/o pain to back 6/10. Tylenol given as ordered and documented. No other distress observed.
--- NOTE | 2021-10-02 20:47 | USCV_ITS ---
Camelia Garza Age: 71 Gender: F : 1950 Exam Date: 10/02/2021 06:14 Ordering Phys: Ravi Subramanian MD Technologist: Exam Location: [facility] – [place] Indication: CHEST PAIN BP: 132 / 80 HR: 67 Rhythm: Sinus Technical Quality: Adequate MEASUREMENTS (Male / Female) Normal Values 2D ECHO LV Diastolic Diameter PLAX 3.4 cm 4.2 - 5.9 / 3.9 - 5.3 cm LV Systolic Diameter PLAX 2.0 cm IVS Diastolic Thickness 1.1 cm 0.6 - 1.0 / 0.6 - 0.9 cm IVS Systolic Thickness 1.3 cm LVPW Diastolic Thickness 1.1 cm 0.6 - 1.0 / 0.6 - 0.9 cm LVPW Systolic Thickness 1.4 cm LVOT Diameter 2.0 cm LV Ejection Fraction 2D Teich 72.2 % LV Ejection Fraction MOD 2C 57.2 % LV Ejection Fraction 2C AL 58.6 % LA Diameter 3.6 cm LA Width 3.3 cm LA Height 5.1 cm RA Width 3.3 cm RA Height 4.8 cm M-MODE LV Diastolic Diameter MM 4.5 cm 4.2 - 5.9 / 3.9 - 5.3 cm LV Systolic Diameter MM 2.8 cm LV Ejection Fraction MM Teich 67.4 % IVS Diastolic Thickness MM 0.9 cm 0.6 - 1.0 / 0.6 - 0.9 cm IVS Systolic Thickness MM 1.8 cm LVPW Diastolic Thickness MM 1.3 cm 0.6 - 1.0 / 0.6 - 0.9 cm LVPW Systolic Thickness MM 1.7 cm RV Diastolic Diameter MM 1.1 cm Aortic Annulus Diameter 3.0 cm LA Ao Ratio MM 1.3 MV E Point Septal Separation 1.1 cm DOPPLER AV Peak Velocity 187.0 cm/s LVOT Peak Velocity 130.0 cm/s AV Area Cont Eq vti 2.2 cm squared AV Area Cont Eq pk 2.2 cm squared MV Area PHT 5.0 cm squared Mitral E to A Ratio 0.9 MV E' Velocity 55.0 cm/s Mitral E to MV E' Ratio 11.0 Mitral E to LV E' Lateral Ratio 9.8 Mitral E to LV E' Septal Ratio 12.5 TR Peak Velocity 288.8 cm/s TR Peak Gradient 33.4 mmHg TV Peak E Velocity 143.0 cm/s Right Atrial Pressure 3.0 mmHg Pulmonary Artery Systolic Pressu 36.4 mmHg FINDINGS Left Ventricle Normal left ventricular size and systolic function, EF 58 %. No regional wall motion abnormalities. Mild left ventricular hypertrophy. Grade I/IV diastolic dysfunction (abnormal relaxation filling pattern), normal to mildly elevated filling pressures. Right Ventricle The right ventricle is normal in size and function. Right Atrium The right atrium is normal in size. Left Atrium The left atrium is normal in size. Mitral Valve Thickened mitral valve. Mild mitral annular calcification. Trace mitral valve regurgitation. Aortic Valve Thickened aortic valve. Tricuspid Valve Trace tricuspid valve regurgitation. Pulmonic Valve No gross abnormalities noted Pericardium Normal pericardium without effusion. Aorta Normal ascending aorta dimension. CONCLUSIONS Normal left ventricular size and systolic function, EF 58 %. No regional wall motion abnormalities. Mild left ventricular hypertrophy. Grade I/IV diastolic dysfunction (abnormal relaxation filling pattern), normal to mildly elevated filling pressures. Thickened mitral valve. Mild mitral annular calcification. Trace mitral valve regurgitation. Thickened aortic valve. Trace tricuspid valve regurgitation. Pulmonary artery peak systolic pressure 36 mmHg. There is no pericardial effusion. There are no intracardiac masses. No previous study is available for comparison. Dr Torin Zeng MD [facility] (Electronically Signed) Final Date: 02 October 2021 09:02 S
[2021-10-02 21:03] LABS: Partial Thromboplastin Time 27.9 SECONDS (23.9-36.7)
--- NOTE | 2021-10-02 22:50 | PC.NURSE ---
All access sites for LHC remain c,d,i with no s/s of bleeding or hematoma formations observed. Patient reports feeling much better tonight. Denies chest pain or pain to LHC access sites. No distress observed. Patient refusing to continue with frequent BP's reporting it is causing discomfort to her arm. VS have been WNL.
[2021-10-03] MEDS: LORazepam 0.5 mg Tablet PO ×2 (02:25→11:47)
--- NOTE | 2021-10-03 02:31 | PC.NURSE ---
Patient up to chair at this time. Dressings to left and right groin remain c,d,i with no s/s of bleeding or hematoma formation observed. Dressing to right wrist also remain c,d,i with no s/s of bleeding or hematoma formation observed. Reinforced site care instructions. Patient verbalized complete understanding. Denies other needs. No distress observed.
[2021-10-03 04:00] LABS: Basophils % 0.4 %; Eosinophils # 0.1 10^3/uL (0.0-0.8); Eosinophils % 1.3 %; Hematocrit 39.9 % (37.0-47.0); Hemoglobin 12.1 g/dL (11.5-15.3); Lymphocytes # 1.7 10^3/uL (0.8-4.8); Lymphocytes % 21.2 %; Mean Corpuscular HGB Conc 30.3 g/dL (30.0-36.0); Mean Corpuscular Hemoglobin 29.2 pg (28.0-34.0); Mean Corpuscular Volume 96.1 fl (81-99); Mean Platelet Volume 11.5 fL (7.4-10.4); Monocytes % 12.2 %; Neutrophils # 5.01 10^3/uL (1.8-7.7); Neutrophils % 64.4 %; Nucleated Red Blood Cells % 0 %; Platelet Count 212 10^3/cmm (130-400); Red Blood Count 4.15 10^6/uL (4.1-5.3); Red Cell Distribution Width 13.8 % (12.1-15.1); White Blood Count 7.8 10^3/uL (4.0-10.0)
[2021-10-03 04:03] VITALS: BP 147/60; PULSE 60; RESP 20
[2021-10-03 04:19] LABS: Anion Gap 15.2 (5-19); Blood Urea Nitrogen 19 mg/dL (8-23); Carbon Dioxide 23 mmol/L (22-29); Chloride 108 mmol/L (98-107); Glucose 118 mg/dL (65-115); Osmolality Calculated 297 mOsm/kg (285-295); Potassium 4.2 mmol/L (3.5-5.1); Sodium 142 mmol/L (136-145)
[2021-10-03 04:48] VITALS: PULSE 66
[2021-10-03] MEDS: metoprolol succinate ER (24 HR) 100 mg Tablet PO (05:14)
[2021-10-03] MEDS: ascorbic acid 500 mg Tablet PO (05:14)
[2021-10-03] MEDS: allopurinol 100 mg Tablet PO (05:14)
[2021-10-03] MEDS: pantoprazole DR 40 mg Tablet PO (05:15)
[2021-10-03] MEDS: sodium chloride 0.9% 1,000 ML 100 ML IV ×2 (05:41→11:46)
[2021-10-03 06:47] LABS: Glucose Point of Care 96 mg/dL (70-110)
--- NOTE | 2021-10-03 07:24 | XACV_ITS ---
Exam Room: [facility] Ht: 152 cm Wt: 100 kg BSA: 2.12 m2 Gender: Female : 1950 Any Known Allergies: Other Exam Priority: Routine Indication(s): - Non-ST elevation AR Procedure(s): Procedure Description: Diagnostic procedure Procedure Description: PCI procedure Procedure Description: Drug Eluting Coronary Stent Procedure Description: Miscellaneous Procedure Description: ACT Procedure Description: Coronary Angiography Diagnostic Findings * Proximal Right Coronary Artery: minimal 30% stenosis, DARRIN: 3 flow. * Mid Right Coronary Artery: critical 95% stenosis, DARRIN: 3 flow. * Distal Right Coronary Artery: total occlusion, DARRIN: 3 flow. * Coronary angiography shows right dominance. * Please note the left side system was not engaged, please see yesterday report for detail lesions on 10/02/2021. Interventional Findings * Mid Right Coronary Artery: 95% stenosis treated with a AB TREK 2.75X12 RX BALLOON, MDT R ALEX 3.5X15 ANITA, and MDT NC EUPHORA RX 3.83I80OF BALLOON. 0% residual stenosis, DARRIN: 3 flow. * Distal Right Coronary Artery: 100% stenosis treated with a AB TREK 2.75X12 RX BALLOON, MDT R ALEX 3.0X12 ANITA, and MDT NC EUPHORA RX 3.15F22PD BALLOON. 0% residual stenosis, DARRIN: 3 flow. Conclusions 1. There is total occlusion coronary artery disease with one vessel disease. 2. Mid Right Coronary Artery was treated with a Balloon, Drug Eluting Stent, and Balloon. 3. Distal Right Coronary Artery was treated with a Balloon, Drug Eluting Stent, and Balloon. 4. This is a staged PCI to mid and distal RCA. Patient was brought back from yesterday as she was taken off the table due to ST elevation AR and later her right groin sheath 5. got out accidentally on the floor, due to this problem patient is brought back today. Left groin approach was adopted, AL 0.75 guide was used to intubate right coronary artery. Left side system was not engaged please see in detail in my previous report for left sided coronary arteries. Mid and distal RCA was noted to be significantly stenotic. It was treated with balloon angioplasty followed by drug-eluting stents. 6. . Recommendations * 1-Return to inpatient for close monitoring and routine cath care2-Risk factor modification for secondary prevention3-Statin and aspirin 81 mg life--long, if tolerated * 4- * C * ontinue Plavix 75mg p.o. daily for at least one year. We will assess at the end of one year again to continue if further or not * 5-Continue optimal medical management6-Follow up with Dr. Mayen in four weeks and your primary care in 10 days. Diagnostic RX Recommendation: PCI w/o planned CABG Pressures Phase:Rest AO : 122 / 66 ( 82 ) @ 7:24:00 AM 113 / 46 ( 72 ) @ 7:29:00 AM 123 / 52 ( 80 ) @ 7:37:00 AM -4 / -9 ( -7 ) @ 7:50:00 AM Clinical Evaluation EBL: 5mL-10mL Procedural Details Procedure Consent Obtained. Current Diagnosis : NSTEMI. Hemodynamic formulas in Rest were re-calculated based on hemoglobin value from 10/03/2021 3:29:00 AM. Pre-Procedure Time Out. Identified patient by full name and date of as verbalized by the patient/guarantor. Does the consent match the physician's order: Yes. Accurate & Complete Informed Consent: Yes. Inpatient/Outpatient History & Physical on Chart: Yes. If H&P is completed, is and addenduem needed: No; If yes, is the addendum complete: N/A. Visualize and Verify Site with Patient/Guarantor: N/A. Relevant Radiology Images available: Yes. Pre-op teaching completed and patient verbalized understanding. The risks, benefits, and alternatives of sedation and/or procedure were discussed by physician. The patient agrees to continue. Procedure started. [facility] Clinical Fraility Score: 4: Vulnerable. Financial Foundations Associate Indications: ACS > 24 hours. Chest Pain Symptom Assessment: Typical Angina Symptoms. Cardiovascular Instability: No. Stable. Correct patient, site and procedure confirmed by cath team. Current diagnosis: NSTEMI. PERRLA. Strong, equal hand trouble shooting mechanic bilaterally. Lungs clear x 5 lobes. IV Site on Arrival: 20 gauge in the left forearm. IV Fluids: 0.9% NaCl at KVO. 0 mL infused prior to drop crew laborer. Pre Procedural Pulses: bilateral dorsalis pedis was Doppled. Pre Procedural Pulses: bilateral posterior tibial was Doppled. Pre Procedural Pulses: bilateral radial was 2+. Oxygen started at 2liters/min via nasal canula. bilateral groins was prepped with chloroprep then draped in the usual sterile fashion. Physician notified. Baseline sample Acquired. HR: 67 BPM. Patient's family unavailable. Equipment: 5F - Femoral. Heparinized Saline (2 units/mL), 1000 mL bag. Kit, Micropuncture. Cardiac Cath Pack. ACIST Manifold Kit Model BT 2000. Equipment: 5F - Radial. Equipment: 6F - Femoral. Equipment: 6F - Radial. Physician arrived. Physician scrubbed in. Loreta Tam is circulating RN. Immediate Pre-Procedure Time Out. Correct Patient: Yes; Correct Procedure: Yes; Correct Site: Yes; Correct Patient Position: Yes; Correct Supplies: Yes; Dried Flammable Prep: Yes; Blood Products Available: N/A;. Lidocaine 1% infiltrated to the left groin. Inventory is CRD 6FR AL .75 GUIDE. Inventory: Runthrough wire. Arterial access obtained with micropuncture set. 6 cape verdean AL 0.75 guide catheter was inserted over the wire. Guide seated in the RCA. Runthrough guidewire was advanced through the guide catheter to lesion in the mid RCA. Angiography performed. Inflation number : 1 A AB TREK 2.75X12 RX BALLOON was prepped and advanced across the Dist RCA , then inflated to 18 SHEELA for 0:26 seconds. Inflation number: 1 The AB TREK 2.75X12 RX BALLOON was reinflated across the Mid RCA, to 14 SHEELA for 0:23 seconds. Inflation number: 2 The AB TREK 2.75X12 RX BALLOON was reinflated across the Mid RCA, to 12 SHEELA for 0:38 seconds. Balloon out. Angiography performed. Inflation Number : 2 A MDT R ALEX 3.0X12 ANITA -Lot Number# [id number] was prepped and advanced across the Dist RCA. The stent was deployed at 14 SHEELA for 0:27 seconds. EXP 02-24-24. Stent balloon out over wire. Angiography performed. Inflation Number : 3 A MDT R ALEX 3.5X15 ANITA -Lot Number# [id number] was prepped and advanced across the Mid RCA. The stent was deployed at 14 SHEELA for 0:35 seconds. EXP 06-15-24. Stent balloon out over wire. Angiography performed. Inflation number : 3 A MDT NC EUPHORA RX [id number] BALLOON was prepped and advanced across the Dist RCA , then inflated to 12 SHEELA for 0:19 seconds. Inflation number: 4 The MDT NC EUPHORA RX [id number] BALLOON was reinflated across the Mid RCA, to 12 SHEELA for 0:21 seconds. Inflation number: 5 The MDT NC EUPHORA RX [id number] BALLOON was reinflated across the Mid RCA, to 14 SHEELA for 0:25 seconds. Angiography performed. Balloon out. Wire out. ACT drawn. Results 223 seconds. Therapeutic limits - pre-heparin administration 90-150 seconds and monitoring heparin during a vascular procedure >250 seconds. Guide catheter out. A Left femoral angiogram was performed to determine safe placement of closure device. Lidocaine 1% infiltrated to the left groin. Perclose attempted but failed. 7fr sheath inserted to access site. Sheath(s) sutured into position with 2-0 silk and sterile 4x4's and Op-site applied over the site. No oozing or signs and symptoms of hematoma noted. Arterial sheath flushed and connected to tranducer and pressure bag with heparinized saline. Post Procedure: Pulses reassessed and unchanged. PERRLA. Strong, equal hand trouble shooting mechanic bilaterally. No VTE prophylaxis required. Medication's Wasted: Fentanyl = 50 mcg. Medication's Wasted: Heparin = 3000 units. Total IV fluids: 135 mL. Fluoro: 9:08. Contrast type used: Omnipaque 300 mgI/mL, 500 mL bottle. [id number]. Post-op diagnosis: Mid to distal RCA significant stenosis treated with ANITA. Complications: None. Estimated blood loss: 5mL-10mL. Responsiveness - Normal response to verbal stimuli; alert and oriented, PERRLA. Airway - Unaffected, no intervention required; spontaneous ventilation. Circulation: W/N/L, pulses unchanged. Nausea/Vomiting: N/A. Procedure completed. Patient transferred by bed to 1st floor. Vital chart was stopped. Access Site Site: Left Femoral artery Sheath Size: 6 Fr Hemostasis Success: Unsuccessful Procedure Medications Start: 9:01 AM Stop: 9:01 AM Medication: Versed Amount: 1 mg Route: I.V. Start: 9:01 AM Stop: 9:01 AM Medication: Fentanyl Amount: 50 mcg Route: I.V. Start: 9:19 AM Stop: 9:19 AM Medication: Versed Amount: 1 mg Route: I.V. Start: 9:22 AM Stop: 9:22 AM Medication: Heparin Amount: 9000 units Route: I.V. Start: 9:48 AM Stop: 9:48 AM Medication: Heparin Amount: 2000 units Route: I.V. I, the attending physician, have reviewed and verified all procedure medications. Yes, all medications given per verbal order History/Risk Factors Hypertension: Yes Dyslipidemia: Yes Peripheral Arterial Disease (PAD): No Myocardial Infarction (AR): No Obesity: Yes Tobacco Use: Former Prior Interventions PCI: No CABG: No Valve Surgery: No Report Signatures Finalized by Migel Mayen MD on 10/16/2021 06:43 PM
--- NOTE | 2021-10-03 09:00 | W.PM.OPSUD ---
Surgery/Procedure H&P Update DATE OF PROCEDURE: October 03, 2021 DATE H&P PERFORMED: 10/01/21 H&P UPDATE INFORMATION: I have reviewed H&P completed within last 30 days, I have examined patient prior to procedure and No changes to prior documentation PREOP DIAGNOSIS: Acute coronary syndrome PLANNED PROCEDURE: Operation Date: 10/02/21 11:00 Proposed Procedures p Cardiac Catheterization(Left) - Migel Mayen MD Operation Date: 10/03/21 16:30 Proposed Procedures p Percutaneous Coronary Intervention(Not Applicable) - Migel Mayen MD PATIENT REASSESSED PRIOR TO SEDATION, WITH NO CHANGE NOTED: Yes PHYSICAL EXAM: alert, oriented x 3 and clear to auscultation bilaterally AIRWAY EVAL/ANESTHESIA PLAN: ASA II and Risks, benefits & alternatives of sedation and/or procedure discussed ADDITIONAL INFORMATION: Patient has been explained risk for hematoma major minor bleed CABG stroke urgent or emergent bypass surgery hematoma acute limb ischemia. She agrees to it and would like to proceed with it
--- NOTE | 2021-10-03 09:14 | PC.NURSE ---
at the microbiology lab manager
--- NOTE | 2021-10-03 10:36 | P.PN_ITS ---
Subjective Subjective: Interval history: She is doing well. Denies chest pain. S/p angiogram. Vitals/I&O/Wt Last Vital Signs Temp 97.7 F 10/02/21 16:00 Pulse 66 10/03/21 04:48 Resp 20 H 10/03/21 04:03 BP 147/60 10/03/21 04:03 Pulse Ox 95 10/02/21 23:30 10/02/21 10/03/21 10/03/21 22:59 06:59 14:59 Intake Total 1294.067 / 1294.067 921.667 / 2215.734 Output Total 800 / 800 Balance 1294.067 / 1294.067 121.667 / 1415.734 Weight last 48 hrs Weight 99.79 kg Physical Exam Narrative: EXAM NARRATIVE: Up in chair. Const: COMMON NORMALS: no acute distress and patient oriented x3 NUTRITIONAL APPEARANCE: obese morbidly obese HENMT: COMMON NORMALS: oropharynx normal Neck/C-Spine: COMMON NORMALS: no JVD Resp: COMMON NORMALS: normal respiratory effort and clear to auscultation bilaterally AUSCULTATION: clear to auscultation bilaterally Cardio: COMMON NORMALS: no JVD, regular rhythm, S1 normal heart sound present, S2 normal heart sound present and No murmurs present (Cardio) RHYTHM: regular rhythm HEART SOUNDS: S1 normal heart sound present and S2 normal heart sound present GI: COMMON NORMALS: Normal to inspection, nondistended, normoactive bowel sounds present, Soft to palpation and non-tender PALPATION: Yes Soft to palpation Extremity: COMMON NORMALS: no joint enlargement and no pedal edema OTHER: L groin sheath, dressing. R groin, no hematoma. Neuro: COMMON NORMALS: patient oriented x3 and moves all extremities Skin: COMMON NORMALS: no rashes or lesions noted GENERAL SKIN EXAM: no rashes or lesions noted Urinary Catheter Management^: [place]: Cath Placed During This Visit: yes Reason for Continuing Indwelling Catheter: Acute Urinary Retention or Obstruction Urinary Catheter Date of Insertion: 10/02/21 Urinary Catheter Time of Insertion: 18:57 Data : 10/03/21 03:29 10/03/21 03:29 A&P Assessment and plan (1) NSTEMI (non-ST elevated myocardial infarction): S/p angiogram and 2x stent. Report pending. TTE with EF 58%, grade 1 diastolic dysfunction, thickened mitral valve, trace MVR, trace TVR. Pulmonary artery peak systolic pressure 36 mmHg. No pericardial effusion. Recurrent episodes of chest pain day of admission prolonged episode at least 30 minutes, with troponin elevation with positive delta. Risk factors of CAD including DM2, HTN, morbid obesity, history of heart problems in the family. Former smoker but quit 23 years ago. Aspirin, continue Lovenox, beta-rani, statin. NTG as needed. Monitor telemetry. Status: Acute Additional A&P Information Mild abnormality D-dimer: 0.71, normal corrected for age. Denies shortness of breath, cough, hemoptysis, unilateral leg swelling, low risk of PE. DM2 HTN Morbid obesity Attestations Medical Necessity Statement*: Continue post PCI care following intervention for NSTEMI. Coding Level of Care Code Acute Credit Charge Authorizer for Venkatesh Fwd Exam Comprehensive Diagnoses NSTEMI (non-ST elevated myocardial infarction) I21.4
[2021-10-03 11:03] LABS: Glucose Point of Care 106 mg/dL (70-110)
--- NOTE | 2021-10-03 11:15 | PC.NURSE ---
Add noted: Pt previous left groin access yesterday was started to have more blood oozing around 11 am that saturated the dressing. New left groin access w/ 7 F sheath attached to pressure bag was mildly oozing. Pt new dressings applied to left groin is intact. no new drainage noted under the dressing. small hematoma noted but no change. moderate bruise noted around the groin area. Dr. mariano notified and is aware.
--- NOTE | 2021-10-03 11:15 | PC.NURSE ---
activity restrictions Pt needs reinforcement on bedrest and activity restrictions on her left leg. she occassionally move her left leg and hip after educating her. Noted saturated blood on the dressings. change dressings and reinforcement more on the dressings. pressure held for 5 mins. pt has a brandt on below her access area which is oozing more. dressing applied. pt wants to move her left knee for comfort but reinforce not to bend it due to bleeding. she verbalizes understanding. informed dr. mariano.
[2021-10-03 11:29] VITALS: PULSE 67; RESP 16; O2SAT 94
[2021-10-03] MEDS: morphine 4 mg/mL SDV 1 mL 2 MG IVP (11:46)
[2021-10-03] MEDS: clopidogrel 75 mg Tablet PO (12:04)
--- NOTE | 2021-10-03 13:16 | PC.CHAP ---
Pastoral Care Encounter/Spiritual Assessment Type of Contact [] Declined plant physiologist visit [] Patient/Family/Request visit [] Outpatient visit [] Follow-up visit [] Physician referral [] Code/Alert [] Routine visit [] Staff referral [] Actively dying [] Patient sleeping [] Family support [] [xx] Out of room [] Palliative care [] [] Receiving care in room [] Pre-surgical visit [] Trauma [] Long length of stay [] ICU visit [] Other: Relational/Emotional Strength [] Patient feels connected with others/family/visitors/staff [] Distress [] Loneliness/isolation [] Abandonment Spirituality of Patient [] Person of Lilliana [] Attends Sabianist of their Lilliana [] Believes in Prayer [] Reads Bible or Mandaeism materials [] There are Spiritual issues to be addressed Mosaic Tile Maker Interventions [] Prayer [] Active listening [] Non-anxious presence [] Spiritual/emotional support [] Crisis/trauma care [] Spiritual counseling [] Bereavement support [] Provided bereavement packet [] Provided Bible/devotional materials [] Provided toy/stuffed animal, coloring book to patient or family member [] Provided Communion [] Anointing/[place] [] Salvation [] Completed spiritual assessment [] Other: Impact on Illness or Injury [] Angry [] Fearful [] Anxious [] Often cries [] Exhaustion [] Unable to work [] Unable to attend hoahaoism [] Unable to walk/stand [] Unable to read [] Unable to drive [] Unable to eat/drink [] Unable to sleep [] Unable to be with family [] Patient intubated [] Other: Summary Patient was out of room for medical tests. Follow up later. Time spent with patient
[2021-10-03 13:22] LABS: Partial Thromboplastin Time 94.6 SECONDS (23.9-36.7)
[2021-10-03 14:00] VITALS: PULSE 78
[2021-10-03 15:05] LABS: Partial Thromboplastin Time 39.9 SECONDS (23.9-36.7)
[2021-10-03 16:12] LABS: Glucose Point of Care 147 mg/dL (70-110)
--- NOTE | 2021-10-03 16:15 | PC.NURSE ---
Sheath removed Fentanyl given pror to sheath pull. 7 F sheath removed to left groin artery. Manual pressure held for 20 mins. No more hematoma or bleeding noted except from the previous large bruising. Pt tolerated the procedure well. Activity restrictions reinstructed again. Dr. Mayen is aware.
--- NOTE | 2021-10-03 17:15 | PC.NURSE ---
Doctor at bedside. Dr. Anders is at bedside for rounding. Notified her on the pt's Sheath pull and left groin assessment. stated no big hematoma felt. Surrounding bruised skin is soft. Pt denies any pain or discomfort.
[2021-10-03] MEDS: fentaNYL 50 mcg/mL INJ 2mL IVP (17:27)
[2021-10-03] MEDS: insulin lispro 100 unit/1 mL SUBCUT (18:02)
[2021-10-03 19:22] VITALS: BP 127/54; PULSE 78; RESP 22; TEMP 37.4; O2SAT 95
[2021-10-03] MEDS: atorvastatin 40 mg Tablet PO (20:28)
[2021-10-03 20:34] LABS: Glucose Point of Care 141 mg/dL (70-110)
--- NOTE | 2021-10-03 20:35 | PC.NURSE ---
Received report from Rui RN Patient resting in bed. S/p C with left groin access. Dressing in place remain c,d,i. Observed bruising to site of which Dr Mayen is aware and has seen personally. No s/s of hematoma or active bleeding observed. Patient denies pain to site. Reports feeling much better. Instructed patient on site care and restrictions. Patient verbalized complete understanding. No distress observed. Will continue to monitor.
[2021-10-03 21:21] VITALS: PULSE 79
--- NOTE | 2021-10-03 22:13 | PC.NURSE ---
Patient up out of bed at this time. Dressing to left groin remains c,d,i. Bruising observed to site. Patient denies pain. No active bleeding or hematoma formation observed. Patient requested to have kovacs catheter removed at this time. Removed kovacs catheter per protocol. Patient tolerated well. Reinforced instruction on site care. Patient verbalized understanding.
[2021-10-04 01:32] VITALS: BP 134/55; PULSE 83; RESP 19
[2021-10-04 03:23] VITALS: BP 177/100; PULSE 88; RESP 20; TEMP 36.9; O2SAT 94
[2021-10-04 04:13] LABS: Basophils % 0.4 %; Eosinophils # 0.1 10^3/uL (0.0-0.8); Eosinophils % 0.8 %; Hematocrit 33.2 % (37.0-47.0); Hemoglobin 10.3 g/dL (11.5-15.3); Lymphocytes # 1.7 10^3/uL (0.8-4.8); Lymphocytes % 15.2 %; Mean Corpuscular Volume 93.5 fl (81-99); Mean Platelet Volume 11.9 fL (7.4-10.4); Monocytes # 1.3 10^3/uL (0.2-0.9); Monocytes % 11.7 %; Neutrophils # 8.09 10^3/uL (1.8-7.7); Neutrophils % 71.5 %; Nucleated Red Blood Cells % 0 %; Platelet Count 197 10^3/cmm (130-400); Red Blood Count 3.55 10^6/uL (4.1-5.3); Red Cell Distribution Width 13.9 % (12.1-15.1); White Blood Count 11.3 10^3/uL (4.0-10.0)
[2021-10-04 04:19] VITALS: PULSE 86
[2021-10-04 04:39] LABS: Anion Gap 13.7 (5-19); Blood Urea Nitrogen 20 mg/dL (8-23); Calcium 7.8 mg/dL (8.5-10.5); Carbon Dioxide 22 mmol/L (22-29); Chloride 107 mmol/L (98-107); Glucose 113 mg/dL (65-115); Osmolality Calculated 291 mOsm/kg (285-295); Potassium 3.7 mmol/L (3.5-5.1); Sodium 139 mmol/L (136-145)
[2021-10-04] MEDS: ascorbic acid 500 mg Tablet PO (05:15)
[2021-10-04] MEDS: metoprolol succinate ER (24 HR) 100 mg Tablet PO (05:15)
[2021-10-04] MEDS: pantoprazole DR 40 mg Tablet PO (05:15)
[2021-10-04] MEDS: allopurinol 100 mg Tablet PO (05:15)
[2021-10-04] MEDS: acetaminophen 325 mg Tablet 650 MG PO (05:18)
--- NOTE | 2021-10-04 05:23 | PC.NURSE ---
Shift Note Frequent safety and comfort rounds continue. Orders and/or nursing care completed as indicated. Patient monitored for response to intervention and treatment(s). Education provided includes post [facility] site care and restriction, cefzolin. Patient verbalized complete understanding. Dressing to bilateral groins remain c,d,i with no evidence of further bleeding or hematoma formation observed. Patient does have extensive bruising to left groin of which Dr Mayen is aware. Patient c/o generalized pain to back from lying flat for so many hours yesterday. Tylenol administered as ordered and documented. No distress observed. Will continue to monitor.
[2021-10-04 06:41] LABS: Glucose Point of Care 143 mg/dL (70-110)
[2021-10-04 07:55] VITALS: BP 137/50; PULSE 74; RESP 16; O2SAT 95
--- NOTE | 2021-10-04 09:22 | P.PN_ITS ---
Subjective Subjective: Interval history: S/p 2 drug-eluting stent to proximal to mid and distal RCA yesterday via left femoral approach. She is doing well post procedure denies having any chest pain or shortness of breath. Medications: Reviewed: Yes Medication Review Details: Current Medications Acetaminophen (Acetaminophen 325 Mg Tablet) 650 mg PO Q6H PRN PRN Reason: Mild/Mod Pain Or Temp >/= 101 Last Admin: 10/04/21 05:18 Dose: 650 mg Documented by: Hydrocodone Bitart/Acetaminophen (Hydrocodone-Acetaminophen 5-325 Mg Tablet) 1 tab PO Q6H PRN PRN Reason: MODERATE PAIN Al Hydrox/Mg Hydrox/Simethicone (Ohpn-Vet-Ilezwrejc-Rosa Maria 30 Ml Udc) 30 ml PO Q15M PRN PRN Reason: INDIGESTION Al Hydrox/Mg Hydrox/Simethicone (Ztmg-Bhf-Llcvlvgws-Rosa Maria 30 Ml Udc) 30 ml PO Q15M PRN PRN Reason: INDIGESTION Albuterol Sulfate (Albuterol 8 Gm Mdi) 2 puff INHALATION Q4H PRN PRN Reason: Shortness Of Breath Allopurinol (Allopurinol 100 Mg Tablet) 100 mg PO QAM [facility] Last Admin: 10/04/21 05:15 Dose: 100 mg Documented by: Ascorbic Acid (Ascorbic Acid 500 Mg Tablet) 500 mg PO QAM [facility] Last Admin: 10/04/21 05:15 Dose: 500 mg Documented by: Aspirin (Aspirin 325 Mg Ec Tablet) 325 mg PO DAILY [facility] Last Admin: 10/02/21 08:48 Dose: 325 mg Documented by: Atorvastatin Calcium (Atorvastatin 40 Mg Tablet) 40 mg PO BEDTIME [facility] Last Admin: 10/03/21 20:28 Dose: 40 mg Documented by: Atropine Sulfate (Atropine 1 Mg/Ml Sdv 1 Ml) 0.5 mg IVP PRN PRN PRN Reason: Symptomatic bradycardia Clopidogrel Bisulfate (Clopidogrel 75 Mg Tablet) 75 mg PO DAILY [facility] Last Admin: 10/03/21 12:04 Dose: 75 mg Documented by: Dextrose (Dextrose 50% Syringe 50 Ml) 25 ml IVP ONCE PRN; Protocol PRN Reason: hypoglycemia protocol Dextrose (Dextrose 50% Syringe 50 Ml) 50 ml IVP PRN PRN; Protocol PRN Reason: hypoglycemia protocol Fentanyl (Fentanyl 50 Mcg/Ml Inj 2ml) 50 mcg IVP PRN PRN PRN Reason: PAIN Last Admin: 10/03/21 17:27 Dose: 50 mcg Documented by: Glucagon (Glucagon 1 Mg/Ml Inj 1 Ml) 1 mg IM ONCE PRN; Protocol PRN Reason: Adult Acute Hypoglycemia Prot. Dextrose (D5w) 500 mls @ 100 mls/hr IV ONCE PRN; Protocol PRN Reason: Adult Acute Hypoglycemia Prot Nitroglycerin/Dextrose (Nitroglycerin Drip) 50 mg in 250 mls @ 0 mls/hr IV .Q0M [facility]; Protocol Last Titration: 10/02/21 19:00 Dose: Infused Documented by: Cefazolin Sodium 500 mg/ (Sodium Chloride) 50 mls @ 100 mls/hr IV Q8H [facility]; Protocol Last Infusion: 10/04/21 06:55 Dose: Infused Documented by: Insulin Human Lispro (Insulin Lispro 100 Unit/1 Ml) 0 unit SUBCUT WM&BEDTIME [facility]; Protocol Last Admin: 10/04/21 09:20 Dose: Not Given Documented by: Lorazepam (Lorazepam 0.5 Mg Tablet) 0.5 mg PO TID PRN PRN Reason: Anxiety Last Admin: 10/03/21 11:47 Dose: 0.5 mg Documented by: Magnesium Hydroxide (Magnesium Hydroxide 30 Ml Udc) 30 ml PO DAILY PRN PRN Reason: CONSTIPATION Magnesium Hydroxide (Magnesium Hydroxide 30 Ml Udc) 30 ml PO DAILY PRN PRN Reason: CONSTIPATION Metoprolol Succinate (Metoprolol Succinate Er (24 Hr) 100 Mg Tablet) 100 mg PO QAM [facility] Last Admin: 10/04/21 05:15 Dose: 100 mg Documented by: Naloxone HCl (Naloxone 0.4 Mg/Ml Sdv) 0.1 mg IVP Q2M PRN PRN Reason: RESPIRATORY RATE < 8/MIN Nitroglycerin (Nitroglycerin 0.4 Mg Sublingual Tablet) 0.4 mg SUBLINGUAL Q5M PRN PRN Reason: CHEST PAIN Last Admin: 10/02/21 13:30 Dose: 1 tab Documented by: Nitroglycerin (Nitroglycerin 0.4 Mg Sublingual Tablet) 0.4 mg SUBLINGUAL Q5M PRN PRN Reason: CHEST PAIN Non-Formulary Medication (Fosinopril) 20 mg PO BID [facility] Last Admin: 10/04/21 09:20 Dose: Not Given Documented by: Nystatin (Nystatin Cream 30 Gm) 1 applic TOPICAL BID [facility] Pantoprazole Sodium (Pantoprazole Dr 40 Mg Tablet) 40 mg PO QAM [facility] Last Admin: 10/04/21 05:15 Dose: 40 mg Documented by: Temazepam (Temazepam 15 Mg Capsule) 15 mg PO BEDTIME PRN PRN Reason: INSOMNIA Last Admin: 10/02/21 20:26 Dose: 15 mg Documented by: Vitals/I&O/Wt Last Vital Signs Temp 98.5 F 10/04/21 03:23 Pulse 74 10/04/21 07:55 Resp 16 10/04/21 07:55 BP 137/50 10/04/21 07:55 Pulse Ox 95 10/04/21 07:55 10/03/21 10/04/21 10/04/21 22:59 06:59 14:59 Intake Total 2290 / 2650 50 / 2700 240 / 240 Output Total 300 / 650 Balance 1989 50 / 2050 240 / 240 Physical Exam Narrative: EXAM NARRATIVE: GENERAL: obese woman in no acute distress HEENT:Pupils equal round reactive to light. No pallor or icterus. NECK: No JVD, No carotid bruit. CARDIOVASCULAR SYSTEM: S1-S2 regular. No murmur rubs or gallops. RESPIRATORY SYSTEM: Chest clear to auscultation. No wheezes rhonchi or rubs heard. No use of accessory muscles. ABDOMEN: Soft, nontender and nondistended. Normal bowel sounds present. EXTREMITIES: No cyanosis or clubbing. No edema. Bruising noted in left groin and small hematoma. Right groin access site with mild bruising. Right radial with no significant hematoma or bruising. DATABASE ENGINEER: Patient is alert oriented ?3. No focal neurological deficits. Urinary Catheter Management^: [place]: Cath Placed During This Visit: yes, but has since been removed by the nurse Reason for Continuing Indwelling Catheter: Acute Urinary Retention or Obstruction Urinary Catheter Date of Insertion: 10/02/21 Urinary Catheter Time of Insertion: 18:57 Date Urinary Catheter Removed: 10/03/21 Time Urinary Catheter Discontinued: 22:11 Data : 10/04/21 03:33 10/04/21 03:33 A&P Assessment and plan (1) NSTEMI (non-ST elevated myocardial infarction): S/p drug-eluting stents RCA -Patient is doing well post procedure. -May be discharged with aspirin 81 mg, clopidogrel 75 mg, atorvastatin 40 mg and metoprolol succinate 100 mg. -Preserved left ventricular systolic function. Continue with Protonix 40 mg daily and nitroglycerin sublingual as needed on discharge -BMP in 1 week -discussion about cardiac rehab at the time of follow up -Follow-up with our nurse practitioner in [facility] in 1 week -Follow-up with me in 4 to 6 weeks. Status: Acute (2) HTN (hypertension): Blood pressure and heart rate log and further changes in a week at the time of follow-up. Status: Acute (3) Dyslipidemia: Status: Acute (4) Diabetes mellitus: Status: Acute (5) GERD (gastroesophageal reflux disease): Status: Acute Attestations Medical Necessity Statement*: stable to be discharged home Time Spent in Patient Care: 16 - 35 minutes (>than 50% of time spent in co unselling and/or direct pt care on unit) . 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
[2021-10-04] MEDS: aspirin 325 mg EC Tablet PO (09:40)
[2021-10-04] MEDS: clopidogrel 75 mg Tablet PO (09:40)
--- NOTE | 2021-10-04 09:46 | PC.SOCIAL ---
IMM Update pg 2 of IMM updated and reviewed w/ patient. Copy provided and placed in chart.
[2021-10-04 11:15] LABS: Glucose Point of Care 121 mg/dL (70-110)
[2021-10-04 12:00] VITALS: BP 116/58; PULSE 68; RESP 19; O2SAT 94
[2021-10-04 12:52] LABS: Chol HDL Ratio 3.13 mg/dL (0.0-4.40); Cholesterol 94 mg/dL (0-200); HDL Cholesterol 30 mg/dL (60-100); LDL Cholesterol Calculated 34 mg/dL (50-129); LDL Cholesterol Direct 39 mg/dL (0-100); LDL HDL Ratio 1.13 RATIO (0.00-3.22); Triglycerides 150 mg/dL (0-150)
[2021-10-04 15:58] VITALS: BP 116/58; PULSE 68; RESP 19; O2SAT 94
--- NOTE | 2021-10-04 16:28 | PC.NURSE ---
discharge instructions given and explained.pt verb understanding of instructions.prescriptions provided for remainder of weekend.discharged via w/c to exit.friend to drive pt home.
--- NOTE | 2021-10-04 18:42 | P.DS_ITS ---
Discharge Providers Date of Admission: 10/01/21 17:32 Date of Discharge: October 04, 2021 Attending Provider at Admission: Ravi Subramanian Attending Provider at Discharge: Ravi Subramanian Diagnoses at Discharge Discharge Diagnosis (1) NSTEMI (non-ST elevated myocardial infarction): Status: Acute (2) HTN (hypertension): Status: Acute (3) Dyslipidemia: Status: Acute (4) Diabetes mellitus: Status: Acute (5) GERD (gastroesophageal reflux disease): Status: Acute Reason for Visit Reason for Visit: chest pain Hospital Course Hospital Course Pleasant 71-year-old lady with history of diabetes, HTN, morbid obesity, former smoker, quit 25 years ago, gout, anxiety, since about 10 years he has been expensing some on and off brief episodes of chest discomfort. Presented due to a prolonged episode which lasted at least 30 minutes. Noted with rising troponin on admission, [id number]. Started on treatment for NSTEMI, continued on aspirin, beta-rani, statin, started on anticoagulation. Assessed by cardiology. TTE showed ejection fraction of 58%, no R WMA, grade 1 diastolic dysfunction, thickened mitral valve, trace MVR, thickened aortic valve, trace TVR, pulmonary artery peak systolic pressure 36 mmHg. No pericardial effusion. No intracardiac masses. On assessment with coronary angiography found to have difficult access, with attempts in right wrist and right groin. Successful cannulation in the left groin although still with some difficulty, underwent PCI with 2 drug-eluting stents to proximal to mid and distal RCA. Subsequently feeling much better. No recurrence of chest pain. Due to erythema/chafing in the left groin empirically treated with Ancef in the hospital, and will complete a brief course with Keflex at discharge. Also provided prescription for nystatin ointment. To follow-up with cardiology in office for reassessment of her condition and access sites with medication adjustments as below. Physical Exam Narrative: EXAM NARRATIVE: Up in chair. Const: COMMON NORMALS: no acute distress and patient oriented x3 NUTRITIONAL APPEARANCE: obese morbidly obese HENMT: COMMON NORMALS: oropharynx normal Neck/C-Spine: COMMON NORMALS: no JVD Resp: COMMON NORMALS: normal respiratory effort and clear to auscultation bilaterally AUSCULTATION: clear to auscultation bilaterally Cardio: COMMON NORMALS: no JVD, regular rhythm, S1 normal heart sound present, S2 normal heart sound present and No murmurs present (Cardio) RHYTHM: regular rhythm HEART SOUNDS: S1 normal heart sound present and S2 normal heart sound present GI: COMMON NORMALS: Normal to inspection, nondistended, normoactive bowel sounds present, Soft to palpation and non-tender PALPATION: Yes Soft to palpation Extremity: COMMON NORMALS: no joint enlargement and no pedal edema OTHER: L groin mild erythema patches, chafing Neuro: COMMON NORMALS: patient oriented x3 and moves all extremities Skin: COMMON NORMALS: no rashes or lesions noted GENERAL SKIN EXAM: no rashes or lesions noted Urinary Catheter Management^: [place]: Cath Placed During This Visit: yes, but has since been removed by the nurse Reason for Continuing Indwelling Catheter: Acute Urinary Retention or Obstruction Urinary Catheter Date of Insertion: 10/02/21 Urinary Catheter Time of Insertion: 18:57 Date Urinary Catheter Removed: 10/03/21 Time Urinary Catheter Discontinued: 22:11 Discharge Data Data Completed and Pending: Completed Studies During Hospitalization Category Date Time Status XR chest 1V quentin ble [id number] Stat Exams 10/01/21 13:32 Completed CV. echo complete * [id number] Routine Ultrasound 10/02/21 20:47 Completed Pending at discharge Category Date Time Status BATTERY ASSEMBLER request for service Routin e Exams 10/02/21 07:02 Taken BATTERY ASSEMBLER request for service Routin e Exams 10/02/21 13:34 Taken BATTERY ASSEMBLER request for service Routin e Exams 10/03/21 07:24 Ordered Labs from last 24 hours 10/04/21 10/04/21 10/04/21 11:02 06:33 03:33 WBC RBC Hgb Hct MCV MCH MCHC RDW Plt Count MPV Neut % (Auto) Lymph % (Auto) [place] % (Auto) Eos % (Auto) Baso % (Auto) Neut # (Auto) Lymph # (Auto) [place] # (Auto) Eos # (Auto) Baso # (Auto) Nucleated RBC % (a uto) Nucleated RBCs # Sodium Potassium Chloride Carbon Dioxide Anion Gap BUN Creatinine GFR Calculation Glucose POC Glucose 121 H 143 H Calculated Osmolal ity Calcium C-React Prot High Sens 4.560 H Triglycerides 150 Cholesterol 94 LDL Cholesterol Di rect 39 LDL Cholesterol, C alc 34 L HDL Cholesterol 30 L LDL/HDL Ratio 1.13 Cholesterol/HDL Ra anil 3.13 01/08/22 01/08/22 01/07/22 03:33 03:33 20:24 WBC 11.3 H RBC 3.55 L Hgb 10.3 L Hct 33.2 L MCV 93.5 MCH 29.0 MCHC 31.0 RDW 13.9 Plt Count 197 MPV 11.9 H Neut % (Auto) 71.5 Lymph % (Auto) 15.2 [place] % (Auto) 11.7 Eos % (Auto) 0.8 Baso % (Auto) 0.4 Neut # (Auto) 8.09 H Lymph # (Auto) 1.7 [place] # (Auto) 1.3 H Eos # (Auto) 0.1 Baso # (Auto) 0.0 Nucleated RBC % (a uto) 0 Nucleated RBCs # 0.0 Sodium 139 Potassium 3.7 Chloride 107 Carbon Dioxide 22 Anion Gap 13.7 BUN 20 Creatinine 0.9 GFR Calculation Not Reportable Glucose 113 POC Glucose 141 H Calculated Osmolal ity 291 Calcium 7.8 L C-React Prot High Sens Triglycerides Cholesterol LDL Cholesterol Di rect LDL Cholesterol, C alc HDL Cholesterol LDL/HDL Ratio Cholesterol/HDL Ra anil Vitals: Last Vital Signs Temp 98.5 F 10/04/21 03:23 Pulse 68 10/04/21 15:58 Resp 19 H 10/04/21 15:58 BP 116/58 10/04/21 15:58 Pulse Ox 94 10/04/21 15:58 Discharge Plan Discharge Patient Disposition: Home Condition: Stable Prescriptions: New clopidogrel 75 mg Tablet 75 mg PO DAILY Qty: 90 RF: 0 aspirin 81 mg capsule 81 mg PO DAILY Qty: 90 RF: 0 Keflex 750 mg capsule 750 mg PO BID 7 Days Qty: 14 RF: 0 nystatin 100,000 unit/gram ointment 1 applic topical BID Qty: 30 RF: 0 Continued aspirin 325 mg Tablet 650 mg PO ONCE RF: 0 metoprolol succinate 100 mg tablet extended release 24 hr 100 mg PO QAM RF: 0 Vitamin B-12 1,000 mcg Tablet 1,000 mcg PO QAM RF: 0 fosinopril 20 mg tablet 20 mg PO BID RF: 0 calcium carbonate-vitamin D3 600 mg(1,500mg) -200 unit Tablet 1 tab PO QAM RF: 0 allopurinol 100 mg tablet 100 mg PO QAM RF: 0 lorazepam 0.5 mg tablet 0.5 mg PO TID PRN (Reason: Anxiety) RF: 0 Vitamin C 500 mg Tablet 500 mg PO QAM RF: 0 omeprazole 20 mg capsule,delayed release(DR/EC) 20 mg PO QAM RF: 0 hydrochlorothiazide 25 mg tablet 25 mg PO EVERY OTHER DAY RF: 0 Ventolin HFA 90 mcg/actuation Hfa Aerosol Inhaler 2 puff INHALATION Q4H PRN (Reason: Shortness Of Breath) RF: 0 Vitamin D3 50 mcg (2,000 unit) Tablet 50 mcg PO QAM RF: 0 Victoza 3-Jeremy 0.6 mg/0.1 mL (18 mg/3 mL) pen injector 1.8 mg SUBCUT BEDTIME RF: 0 Invokana 100 mg tablet 100 mg PO QAM RF: 0 PreserVision AREDS-2 250-90-40-1 mg Capsule 1 cap PO QAM RF: 0 turmeric 400 mg Capsule 400 mg PO QAM RF: 0 Changed atorvastatin 20 mg tablet 40 mg PO BEDTIME Qty: 180 RF: 0 Discharge Orders: Discharge Order (Routine); Ordered 10/04/21 Ordered By: Ravi Subramanian Other Ambulatory Orders: Basic Metabolic Panel (Routine) Timeframe: 1 Week Facility: [facility] - Location: Lab - Main Lab Ordered By: Ravi Subramanian Referrals: Clare Trevino MD [Referring] - 4-7 days Deneen Cabrera FNP [Nurse Practitioner] - 1 week ([facility] will contact you to schedule an follow-up with Deneen Cabrera in 1 week. If you haven't heard from them by Wednesday. Please call ) Danielle Anders MD [Physician] - 2 weeks ([facility] wll contact you to schedule an follow-up with Dr. Anders. If you haven't heard from them by Wednesday. Please call ) Discharge Diet: Cardiac Discharge Activity: Increase activity as tolerated and Limit activity as instructed Patient Instructions: Cephalexin (By mouth) (Bio-Cef, Keflex), Aspirin (By mouth), Nystatin (On the skin), Clopidogrel (By mouth) (Plavix), Heart Attack (DC), Hypertension (DC), Opioid Safety, Post Angiogram Home Care Instructions, Post Heart Attack Stoplight Activity Restrictions/Additional Instructions: If you experience any chest pain or pressure, shortness of breath, any swelling or bleeding in the groin at the site of access, or other concerning symptoms, please seek medical attention without delay. Please have your primary doctor reexamine the area of redness in the left groin. Complete short antibiotic course. Continue nystatin ointment. Discharge Attestations Time Spent in Discharge Care*: greater than 30 min Quality Metrics Clinical Quality Measures During this hospital stay, did patient experience: AMI Clinical Trial Pa rticipant: No Contraindication to aspirin (AMI): Aspirin given Contraindication to statin: Statin prescribed Contraindication to PCI: PCI performed Coding Level of Care Code Acute g FW DC note Exam Comprehensive Diagnoses NSTEMI (non-ST elevated myocardial infarction) I21.4 HTN (hypertension) I10 Dyslipidemia E78.5 Diabetes mellitus E11.9 GERD (gastroesophageal reflux disease) K21.9
== END 2021-10-04 16:30 | disposition home or self-care (01) | DRG 247 ==
LOC: ER 19:51 → MEDSURG 19:59 → CSU 10-02 11:38
PROVIDERS: Internal Medicine Cardiovascular Disease; Admitting Provider Internal Medicine; Emergency Provider Emergency Medicine; Visit Provider Internal Medicine
PROC: 027035Z Dilation of Coronary Artery, One Artery with Two Drug-eluting Intraluminal Devices, Percutaneous Approach (ICD-10-PCS; principal; 2021-10-03 08:30)
DX: I21.4 Non-ST elevation (NSTEMI) myocardial infarction (principal); Z68.41 Body mass index [BMI] 40.0-44.9, adult; F41.9 Anxiety disorder, unspecified; E11.9 Type 2 diabetes mellitus without complications; E78.5 Hyperlipidemia, unspecified; K21.9 Gastro-esophageal reflux disease without esophagitis; M10.9 Gout, unspecified; I10 Essential (primary) hypertension; Z87.891 Personal history of nicotine dependence; E66.01 Morbid (severe) obesity due to excess calories; I25.10 Atherosclerotic heart disease of native coronary artery without angina pectoris; L53.9 Erythematous condition, unspecified; Z79.899 Other long term (current) drug therapy
CPT/HCPCS: 36415; 36416; 51702; 71045; 80048; 80053; 80061; 82962; 83690; 83721; 83735; 83880; 84484; 85025; 85347; 85378; 85610; 85730; 86141; 87635; 93005; 93306; 93452; 93458; 96372; 99285; C1725; C1760; C1769; C1874; C1887; C1894; C9600; J0360; J0690; J1200; J1644; J1650; J1815; J2250; J2270; J3010; J3246; J3490; J7030; Q9967

== ENCOUNTER → 2021-10-21 12:55 | Outpatient (BNVA) | payer MEDICARE, OTHER, SELFPAY | PROVIDERS: PCP Family Medicine; Visit Provider Internal Medicine Cardiovascular Disease | DX: I21.4 Non-ST elevation (NSTEMI) myocardial infarction (principal); Z98.890 Other specified postprocedural states; I10 Essential (primary) hypertension | CPT/HCPCS: 80048; 85025 ==

== ENCOUNTER 2021-12-06 10:59 | Emergency (ER) | payer MEDICARE, OTHER, SELFPAY ==
[2021-12-06 11:01] VITALS: PULSE 74; RESP 16; TEMP 36.2; O2SAT 95; BMI 44.9
[2021-12-06 11:05] VITALS: BP 219/94
[2021-12-06 11:24] LABS: Basophils % 0.5 %; Eosinophils # 0.2 10^3/uL (0.0-0.8); Eosinophils % 1.7 %; Hematocrit 46.4 % (37.0-47.0); Hemoglobin 14.2 g/dL (11.5-15.3); Lymphocytes # 1.5 10^3/uL (0.8-4.8); Lymphocytes % 17.4 %; Mean Corpuscular HGB Conc 30.6 g/dL (30.0-36.0); Mean Corpuscular Hemoglobin 28.8 pg (28.0-34.0); Mean Corpuscular Volume 94.1 fl (81-99); Mean Platelet Volume 11.3 fL (7.4-10.4); Monocytes # 0.5 10^3/uL (0.2-0.9); Monocytes % 5.2 %; Neutrophils # 6.43 10^3/uL (1.8-7.7); Neutrophils % 74.6 %; Nucleated Red Blood Cells % 0 %; Platelet Count 256 10^3/cmm (130-400); Red Blood Count 4.93 10^6/uL (4.1-5.3); Red Cell Distribution Width 13.3 % (12.1-15.1); White Blood Count 8.6 10^3/uL (4.0-10.0)
--- NOTE | 2021-12-06 11:36 | W.ED.GENADLT ---
HPI - General Adult General: Chief complaint: General Medical Stated complaint: ELEVATED BLOOD PRESSURE Time Seen by Provider: 12/06/21 11:03 History of Present Illness: 71-year-old female presents with concerns of elevated blood pressure. Patient was diagnosed with COVID on 12/03/2021. Patient was recently started on Paxlovid. Patient has no symptoms such as vision changes headache, chest pain, shortness of breath. She presents only because her home reading was with systolics 200s. Patient currently takes fosinopril, metoprolol and hydrochlorothiazide for her blood pressure. She was instructed to be seen if her blood pressure went up due to this being a side effect of the medication. Associated symptoms: Deny chest pain, dyspnea, headache(s), nausea, rash, palpitations or vomiting Review of Systems Const: Denies: fever(s) or chills ENMT: Denies: throat pain Card: Denies: chest pain or palpitations Resp: Denies: dyspnea or wheezing GI: Denies: abdominal pain, nausea or vomiting Skin/Breast: Denies: rash Neuro: Denies: headache(s), numbness in extremities or weakness in extremities Psych: Denies: anxiety or depression PFSH ED PFSH: Medical History (Updated 12/06/21 @ 13:04 by Guzman Esquivel DO) CAD (coronary artery disease) Diabetes mellitus Dyslipidemia GERD (gastroesophageal reflux disease) Gout HTN (hypertension) Rectal fistula Surgical History Hx of cholecystectomy Family History Mother CHF (congestive heart failure) Brother CHF (congestive heart failure) Social History Smoking and tobacco status: former smoker Alcohol intake: never Household members: none Marital status: / Current occupational status: retired Physical Exam Const: COMMON NORMALS: no acute distress, patient oriented x3, no limitations and healthy appearing HENMT: MOUTH: Normal oral and palatal mucosa present Resp: COMMON NORMALS: normal respiratory effort, No use of accessory muscles and clear to auscultation bilaterally AUSCULTATION: clear to auscultation bilaterally Cardio: COMMON NORMALS: regular rate and regular rhythm RATE: regular rate RHYTHM: regular rhythm GI: COMMON NORMALS: Normal to inspection, nondistended, normoactive bowel sounds present, Soft to palpation and non-tender PALPATION: Yes Soft to palpation Extremity: COMMON NORMALS: normal to inspection, full ROM and capillary refill normal Neuro: COMMON NORMALS: patient oriented x3, CN's II-XII intact bilaterally, moves all extremities and no focal motor deficits Psych: COMMON NORMALS: mental status grossly normal, Normal thought process present, cooperative, normal affect, speech normal and activity/motor behavior normal SPEECH: Yes normal speech THOUGHT PROCESS: Normal thought process present Course Vital Signs: Vital signs: Vital Signs Temperature 97.2 F L 12/06/21 11:01 Pulse Rate 66 12/06/21 12:56 Respiratory Rate 20 H 12/06/21 12:56 Blood Pressure 207/83 12/06/21 12:56 Pulse Oximetry 98 12/06/21 12:56 MDM - General Adult Medical Decision Making Patient with elevated blood pressure likely due to herpaxlovid. She responded appropriately to the metoprolol. Patient shows no acute kidney injury on labs. She has no signs such as headache, chest pain, shortness of breath. I did give her additional 50 mg metoprolol prior to discharge. Patient has had 3 doses of her paxlovid. She is fully vaccinated with a booster. She is not having symptoms. She is uncomfortable taking the medication further and I recommended that she is okay to stop it Lab Data : 12/06/21 11:13 12/06/21 12:06 Laboratory Results WBC 8.6 10^3/uL (4.0-10.0) 12/06/21 11:13 RBC 4.93 10^6/uL (4.1-5.3) 12/06/21 11:13 Hgb 14.2 g/dL (11.5-15.3) 12/06/21 11:13 Hct 46.4 % (37.0-47.0) 12/06/21 11:13 MCV 94.1 fl (81-99) 12/06/21 11:13 MCH 28.8 pg (28.0-34.0) 12/06/21 11:13 MCHC 30.6 g/dL (30.0-36.0) 12/06/21 11:13 RDW 13.3 % (12.1-15.1) 12/06/21 11:13 Plt Count 256 10^3/cmm (130-400) 12/06/21 11:13 MPV 11.3 fL (7.4-10.4) H 12/06/21 11:13 Neut % (Auto) 74.6 % 12/06/21 11:13 Lymph % (Auto) 17.4 % 12/06/21 11:13 [place] % (Auto) 5.2 % 12/06/21 11:13 Eos % (Auto) 1.7 % 12/06/21 11:13 Baso % (Auto) 0.5 % 12/06/21 11:13 Neut # (Auto) 6.43 10^3/uL (1.8-7.7) 12/06/21 11:13 Lymph # (Auto) 1.5 10^3/uL (0.8-4.8) 12/06/21 11:13 [place] # (Auto) 0.5 10^3/uL (0.2-0.9) 12/06/21 11:13 Eos # (Auto) 0.2 10^3/uL (0.0-0.8) 12/06/21 11:13 Baso # (Auto) 0.0 10^3/uL (0.0-0.1) 12/06/21 11:13 Nucleated RBC % (auto) 0 % 12/06/21 11:13 Nucleated RBCs # 0.0 /100WBC 12/06/21 11:13 Sodium 138 mmol/L (136-145) 12/06/21 12:06 Potassium 4.3 mmol/L (3.5-5.1) 12/06/21 12:06 Chloride 103 mmol/L (98-107) 12/06/21 12:06 Carbon Dioxide 22 mmol/L (22-29) 12/06/21 12:06 Anion Gap 17.3 (5-19) 12/06/21 12:06 BUN 23 mg/dL (8-23) 12/06/21 12:06 Creatinine 0.9 mg/dL (0.5-0.9) 12/06/21 12:06 GFR Calculation Not Reportable 12/06/21 12:06 Glucose 136 mg/dL (65-115) H 12/06/21 12:06 Calculated Osmolality 292 mOsm/kg (285-295) 12/06/21 12:06 Calcium 8.7 mg/dL (8.5-10.5) 12/06/21 12:06 Total Bilirubin 0.3 mg/dL (0.15-1.2) 12/06/21 12:06 AST 26 U/L (0-32) 12/06/21 12:06 ALT 14 U/L (0-33) 12/06/21 12:06 Alkaline Phosphatase 120 IU/L (35-105) H 12/06/21 12:06 Total Protein 7.1 g/dL (6.6-8.7) 12/06/21 12:06 Albumin 4.1 g/dL (3.5-5.2) 12/06/21 12:06 Globulin 3.0 g/dL (1.3-4.6) 12/06/21 12:06 Discharge Plan Discharge Patient Disposition: Home Clinical Impression: HTN (hypertension), Medication adverse effect Condition: Stable Prescriptions: No Action hydrochlorothiazide 25 mg tablet 25 mg PO DAILY Qty: 180 3RF metoprolol succinate 100 mg tablet extended release 24 hr 100 mg PO QAM 0RF Vitamin B-12 1,000 mcg Tablet 1,000 mcg PO QAM 0RF fosinopril 20 mg tablet 20 mg PO BID 0RF calcium carbonate-vitamin D3 600 mg(1,500mg) -200 unit Tablet 1 tab PO QAM 0RF allopurinol 100 mg tablet 100 mg PO QAM 0RF lorazepam 0.5 mg tablet 0.5 mg PO TID PRN (Reason: Anxiety) 0RF Vitamin C 500 mg Tablet 500 mg PO QAM 0RF omeprazole 20 mg capsule,delayed release(DR/EC) 20 mg PO QAM 0RF Ventolin HFA 90 mcg/actuation Hfa Aerosol Inhaler 2 puff INHALATION Q4H PRN (Reason: Shortness Of Breath) 0RF Vitamin D3 50 mcg (2,000 unit) Tablet 50 mcg PO QAM 0RF Victoza 3-Jeremy 0.6 mg/0.1 mL (18 mg/3 mL) pen injector 1.8 mg SUBCUT BEDTIME 0RF Invokana 100 mg tablet 100 mg PO QAM 0RF PreserVision AREDS-2 250-90-40-1 mg Capsule 1 cap PO QAM 0RF turmeric 400 mg Capsule 400 mg PO QAM 0RF clopidogrel 75 mg Tablet 75 mg PO DAILY Qty: 90 0RF aspirin 81 mg capsule 81 mg PO DAILY Qty: 90 0RF atorvastatin 20 mg tablet 40 mg PO BEDTIME Qty: 180 0RF nystatin 100,000 unit/gram ointment 1 applic topical BID Qty: 30 0RF Rx Instructions: R groin Discharge Orders: Discharge ED (Routine); Ordered 12/06/21 Ordered By: Guzman Esquivel Referrals: Clare Trevino MD [Primary Care Provider] - Discharge Diet: Usual diet Discharge Activity: Resume usual activity Patient Instructions: Opioid Safety, Hypertension (ED) Activity Restrictions/Additional Instructions: Please stop your Paxlovid Follow-up with your primary care provider on Wednesday for recheck of your blood pressure and symptoms Take an additional 50 mg metoprolol in the afternoon as needed for blood pressure greater than 180 Coding Level of Care Code ED Search Optimization Analyst for Chg Fwd Exam Comprehensive
[2021-12-06] MEDS: metoprolol tartrate 1 mg/1 mL SDV 5 mL 5 MG IVP (11:48)
[2021-12-06 12:11] VITALS: BP 224/93; PULSE 61; RESP 16; O2SAT 98
[2021-12-06 12:47] LABS: Alanine Aminotransferase 14 U/L (0-33); Albumin Level 4.1 g/dL (3.5-5.2); Alkaline Phosphatase 120 IU/L (35-105); Blood Urea Nitrogen 23 mg/dL (8-23); Calcium 8.7 mg/dL (8.5-10.5); Carbon Dioxide 22 mmol/L (22-29); Chloride 103 mmol/L (98-107); Glucose 136 mg/dL (65-115); Osmolality Calculated 292 mOsm/kg (285-295); Sodium 138 mmol/L (136-145); Total Bilirubin 0.3 mg/dL (0.15-1.2); Total Protein 7.1 g/dL (6.6-8.7)
[2021-12-06 12:52] LABS: Anion Gap 17.3 (5-19); Aspartate Amino Transferase 26 U/L (0-32); Potassium 4.3 mmol/L (3.5-5.1)
[2021-12-06] MEDS: metoprolol tartrate 50 mg Tablet PO (12:55)
[2021-12-06 12:56] VITALS: BP 207/83; PULSE 66; RESP 20; O2SAT 98
[2021-12-06 13:29] VITALS: BP 203/83; PULSE 72; O2SAT 98
== END 2021-12-06 13:28 | disposition home or self-care (01) ==
PROVIDERS: Emergency Provider Student in an Organized Health Care Education/Training Program; PCP Family Medicine
DX: I10 Essential (primary) hypertension (principal); T50.995A Adverse effect of other drugs, medicaments and biological substances, initial encounter; I25.10 Atherosclerotic heart disease of native coronary artery without angina pectoris; E11.9 Type 2 diabetes mellitus without complications; E78.5 Hyperlipidemia, unspecified; Z87.891 Personal history of nicotine dependence; Z79.02 Long term (current) use of antithrombotics/antiplatelets; Z79.82 Long term (current) use of aspirin
CPT/HCPCS: 80053; 85025; 96374; 99284; J3490

== ENCOUNTER 2021-12-26 12:05 | Outpatient (CLI) | payer MEDICARE, OTHER, SELFPAY ==
[2021-12-26 12:48] LABS: Anion Gap 16.4 (5-19); Blood Urea Nitrogen 27 mg/dL (8-23); Calcium 10.4 mg/dL (8.5-10.5); Carbon Dioxide 26 mmol/L (22-29); Chloride 101 mmol/L (98-107); Glucose 131 mg/dL (65-115); Osmolality Calculated 295 mOsm/kg (285-295); Potassium 4.4 mmol/L (3.5-5.1); Sodium 139 mmol/L (136-145)
[2021-12-26 14:36] LABS: Magnesium 1.9 mg/dL (1.7-2.3); NT Pro B Type Natriuretic Pept 460 pg/mL (0-125)
== END 2021-12-26 12:06 | disposition home or self-care (01) ==
LOC: LAB 12:08
PROVIDERS: PCP Family Medicine; Visit Provider Internal Medicine Cardiovascular Disease
DX: I10 Essential (primary) hypertension (principal); I25.10 Atherosclerotic heart disease of native coronary artery without angina pectoris
CPT/HCPCS: 36415; 80048; 83735; 83880

== ENCOUNTER → 2022-01-21 10:09 | Outpatient (BNVA) | payer MEDICARE, OTHER, SELFPAY | PROVIDERS: PCP Family Medicine; Visit Provider Internal Medicine Cardiovascular Disease | DX: I25.10 Atherosclerotic heart disease of native coronary artery without angina pectoris (principal); I10 Essential (primary) hypertension; Z87.891 Personal history of nicotine dependence | CPT/HCPCS: 99214 ==

== ENCOUNTER → 2022-06-24 10:20 | Outpatient (BNVA) | payer MEDICARE, OTHER, SELFPAY | PROVIDERS: PCP Family Medicine; Visit Provider Internal Medicine Cardiovascular Disease | DX: I25.10 Atherosclerotic heart disease of native coronary artery without angina pectoris (principal); I10 Essential (primary) hypertension; Z87.891 Personal history of nicotine dependence | CPT/HCPCS: 99214 ==

== ENCOUNTER 2022-07-15 10:19 | Outpatient (CLI) | payer MEDICARE, OTHER, SELFPAY ==
--- NOTE | 2022-07-15 11:02 | MM_ITS ---
WS: [id number] BILATERAL SCREENING DIGITAL TOMOSYNTHESIS MAMMOGRAM WITH CAD HISTORY: SCREENING COMPARISON: 10/12/2017 and 05/14/2016 Bilateral CC and MLO views with tomosynthesis and synthetic mammography submitted. Computer aided det ection analyzed. Breast composition: There are scattered areas of fibroglandular density. No suspicious masses, microc alcifications or architectural distortion. Benign lymph node upper outer quadrant RIGHT breast. MM/[place] [id number] IMPRESSION: BI-RADS: 2-Benign FOLLOW UP: 1 Year Follow-up
== END 2022-07-15 10:20 | disposition home or self-care (01) ==
LOC: RAD 10:22
PROVIDERS: PCP Family Medicine; Visit Provider Family Medicine
DX: Z12.31 Encounter for screening mammogram for malignant neoplasm of breast (principal)
CPT/HCPCS: 77063; 77067

== ENCOUNTER → 2025-03-22 11:14 | Outpatient (BNVA) | payer MEDICARE, OTHER, SELFPAY | PROVIDERS: PCP Family Medicine; Visit Provider Family Medicine | DX: I10 Essential (primary) hypertension (principal); I25.10 Atherosclerotic heart disease of native coronary artery without angina pectoris; E78.5 Hyperlipidemia, unspecified; E11.65 Type 2 diabetes mellitus with hyperglycemia; K21.9 Gastro-esophageal reflux disease without esophagitis | CPT/HCPCS: 80053; 80061; 82043; 83036; 84443; 85025 ==

== ENCOUNTER → 2025-09-17 11:16 | Outpatient (BNVA) | payer MEDICARE, OTHER, SELFPAY | PROVIDERS: PCP Family Medicine; Visit Provider Family Medicine | DX: E11.65 Type 2 diabetes mellitus with hyperglycemia (principal); I25.10 Atherosclerotic heart disease of native coronary artery without angina pectoris; E11.22 Type 2 diabetes mellitus with diabetic chronic kidney disease; I12.9 Hypertensive chronic kidney disease with stage 1 through stage 4 chronic kidney disease, or unspecified chronic kidney disease; N18.31 Chronic kidney disease, stage 3a | CPT/HCPCS: 80048; 83036 ==